=== PATIENT | male | born 1955 | race Caucasian/White ===

== ENCOUNTER → 2018-01-13 | Outpatient (CLI) | payer BC | END | disposition home or self-care (01) | LOC: US 09:57 | DX: K80.20 Calculus of gallbladder without cholecystitis without obstruction (principal); E83.19 Other disorders of iron metabolism | CPT/HCPCS: 76705 ==

== ENCOUNTER 2018-03-02 13:25 | Inpatient (IN) | payer OTHER, BC ==
[2018-03-02 14:03] LABS: ADD MAN DIFF? NO
[2018-03-02 14:09] LABS: BASO # 0.1 x10^3/uL (0.0-0.2); BASO % 1 % (0-3); EOS # 0.2 x10^3/uL (0.0-0.7); EOS % 2 % (0-3); HEMATOCRIT 34.3 % (39.0-53.0); HEMOGLOBIN 12.1 g/dL (13.0-17.5); LYMPH # 1.2 x10^3/uL (1.0-4.8); LYMPH % 12 % (24-48); MEAN CORPUSCULAR HEMOGLOBIN 30 pg (25-35); MEAN CORPUSCULAR HGB CONC 35 g/dL (31-37); MEAN CORPUSCULAR VOLUME 85 fL (79-100); MONO # 0.6 x10^3/uL (0.0-1.1); MONO % 6 % (0-9); NEUT # 8.1 x10^3uL (1.8-7.7); NEUT % 79 % (31-73); PLATELET COUNT 220 x10^3/uL (140-400); RED BLOOD COUNT 4.04 x10^6/uL (4.30-5.70); RED CELL DISTRIBUTION WIDTH 14.1 % (11.5-14.5); WHITE BLOOD COUNT 10.2 x10^3/uL (4.0-11.0)
[2018-03-02 14:17] LABS: ANION GAP 11 (6-14); BLOOD UREA NITROGEN 24 mg/dL (8-26); BUN/CREATININE RATIO 13 (6-20); CALCIUM 8.8 mg/dL (8.5-10.1); CARBON DIOXIDE 25 mmol/L (21-32); CHLORIDE 101 mmol/L (98-107); CREATININE 1.8 mg/dL (0.7-1.3); GFR 38.4; GLUCOSE 359 mg/dL (70-99); POTASSIUM 3.8 mmol/L (3.5-5.1); SODIUM 137 mmol/L (136-145)
[2018-03-02] MEDS: ASPIRIN CHEWABLE 81 MG TABLET. PO (14:22)
[2018-03-02] MEDS: ORPHENADRINE CITRATE 60 MG/2 ML VIAL. IM (14:22)
[2018-03-02 14:23] LABS: ALBUMIN 3.5 g/dL (3.4-5.0); ALBUMIN/GLOBULIN RATIO 0.9 (1.0-1.7); ALK PHOS 109 U/L (46-116); ALT (SGPT) 15 U/L (16-63); AST (SGOT) 16 U/L (15-37); LIPASE 135 U/L (73-393); MAGNESIUM 1.8 mg/dL (1.8-2.4); TOTAL BILIRUBIN 0.6 mg/dL (0.2-1.0); TOTAL PROTEIN 7.6 g/dL (6.4-8.2)
[2018-03-02 14:26] LABS: TROPONINI < 0.017 ng/mL (0.000-0.055)
[2018-03-02 14:30] LABS: PROTHROMBIN TIME PATIENT 12.7 SEC (11.7-14.0)
[2018-03-02 14:31] LABS: CKMB INDEX 0.9 % (0-4); CREATINE KINASE 109 U/L (39-308)
[2018-03-02 14:31] LABS: NT-PRO BNP 2959 pg/mL (0-124)
[2018-03-02] MEDS: hydrALAZINE 20 MG/ML VIAL. IVP ×3 (14:41→17:57)
[2018-03-02] MEDS ORDERED: fentaNYL PF VIAL 100 MCG/2 ML VIAL IV (15:45)
[2018-03-02] MEDS: fentaNYL PF VIAL 100 MCG/2 ML VIAL IV (16:09)
[2018-03-02] MEDS: INSULIN REGULAR 100 UNIT/ML 3ML VIAL. IV (16:13)
[2018-03-02 16:16] LABS: POC GLUCOSE 219 mg/dL (70-99)
[2018-03-02 17:11] LABS: POC GLUCOSE 85 mg/dL (70-99)
[2018-03-02 19:07] LABS: TROPONINI 0.018 ng/mL (0.000-0.055)
[2018-03-02 21:05] LABS: POC GLUCOSE 228 mg/dL (70-99)
[2018-03-02] MEDS: INSULIN LISPRO 300 UNITS/3 ML INSULN.PEN. SQ (21:30)
[2018-03-02] MEDS: CARVEDILOL 12.5 MG TABLET. PO (21:30)
[2018-03-02] MEDS ORDERED: HYDROcodone/APAP 5/325MG 1 TAB TABLET PO (21:30)
[2018-03-02] MEDS ORDERED: DEXTROSE 50% 25 GM / 50ML DISP.SYRIN. IV (21:30)
[2018-03-02] MEDS: ISOSORBIDE MONONITRATE 20 MG TABLET PO (21:30)
[2018-03-02] MEDS: ATORVASTATIN CALCIUM 40 MG TABLET. PO (21:40)
[2018-03-02 21:44] LABS: TROPONINI 0.038 ng/mL (0.000-0.055)
[2018-03-03] MEDS: cloNIDine HCL 0.2 MG TABLET PO
[2018-03-03] MEDS: LEVOTHYROXINE 125 MCG TABLET PO (06:22)
[2018-03-03] MEDS: INSULIN LISPRO 300 UNITS/3 ML INSULN.PEN. SQ ×2 (08:00→12:00)
[2018-03-03] MEDS: OMEGA-3 FATTY ACIDS/FISH OIL 1,000 MG CAPSULE. PO (08:31)
[2018-03-03] MEDS: ASPIRIN CHEWABLE 81 MG TABLET. PO (08:31)
[2018-03-03] MEDS: GLIMEPIRIDE 2 MG TABLET. PO (08:31)
[2018-03-03] MEDS: CARVEDILOL 12.5 MG TABLET. PO (08:32)
[2018-03-03] MEDS: LOSARTAN POTASSIUM 50 MG TABLET. PO (08:32)
[2018-03-03] MEDS: FUROSEMIDE 40 MG TABLET. PO (08:33)
[2018-03-03] MEDS: ISOSORBIDE MONONITRATE 20 MG TABLET PO (08:33)
[2018-03-03 08:36] LABS: POC GLUCOSE 115 mg/dL (70-99)
== END 2018-03-03 15:49 | disposition home or self-care (01) | DRG 305 ==
LOC: ER 13:25 → 2 SOUTH 15:29
DX: I16.0 Hypertensive urgency (principal); D64.9 Anemia, unspecified; E03.9 Hypothyroidism, unspecified; E11.65 Type 2 diabetes mellitus with hyperglycemia; E78.00 Pure hypercholesterolemia, unspecified; E78.5 Hyperlipidemia, unspecified; H54.62 Unqualified visual loss, left eye, normal vision right eye; I11.0 Hypertensive heart disease with heart failure; I25.10 Atherosclerotic heart disease of native coronary artery without angina pectoris; I50.9 Heart failure, unspecified; M54.9 Dorsalgia, unspecified; R07.9 Chest pain, unspecified; Z82.49 Family history of ischemic heart disease and other diseases of the circulatory system; Z87.891 Personal history of nicotine dependence; Z95.1 Presence of aortocoronary bypass graft; Z90.49 Acquired absence of other specified parts of digestive tract; Z89.422 Acquired absence of other left toe(s); Z79.899 Other long term (current) drug therapy; Z79.82 Long term (current) use of aspirin; Z79.4 Long term (current) use of insulin; Z89.421 Acquired absence of other right toe(s)
CPT/HCPCS: 36415; 71046; 80053; 82553; 82962; 83690; 83735; 83880; 84484; 85025; 85610; 93005; 96372; 96374; 96376; 99285; 99285-25; J0360; J1815; J2360; J3010

== ENCOUNTER → 2018-07-18 | Outpatient (CLI) | payer BC, OTHER ==
[2018-03-03 11:00] VITALS: BP 146/67
[~2018-07-18] MED LIST: AMLO10TA6 PO; AMOX1TAB61 PO; ASPI-630 PO; ATOR40TA59 PO; CARV25TA2 PO; DOCU-109 PO; DOXY100C2 PO; FERR160T4 PO; FURO40TA4 PO; GLIM4TAB2 PO; ISOS20TA2 PO; LEVO125T5 PO; LOSA100T7 PO; MULT-245 PO; OMEG1CAP28 PO
--- NOTE | 2018-07-18 15:51 | RAD ---
MRI Of The Abdomen Without Intravenous Contrast: History: Neoplasm of the left kidney. Comparison: CT abdomen pelvis May 03, 2014. Technique: MRI of the abdomen was performed without intravenous contrast using multiple sequences and planes. No intravenous contrast was administered secondary to order. Findings: Evaluation is limited secondary to lack of intravenous contrast. Visualized liver is without evidence of focal mass. Spleen is unremarkable as are bilateral adrenal glands. The pancreas demonstrates presence of numerous T2 hyperintense cystic-appearing lesions. The pancreatic lesions range in size from 3 mm to 1.4 cm (visualized in the uncinate process. Pancreatic duct does not appear dilated with maximum diameter of 2 mm. Common bile duct has maximum diameter 4 mm. Gallbladder is partially contracted, but unremarkable. Inferior pole of left kidney demonstrates thinning of the anterior aspect. Involving junction of the interpolar region of the left kidney and the inferior pole, there is a 1.5 cm cystic appearing lesion with increased T2 and intermediate T1 signal. This is not well visualized on the comparison CT, but comparison CT was performed without intravenous contrast. Inferior pole of the right kidney demonstrates 1.2 cm lesion with increased T2 and decreased T1 signal, favored to be cyst. Impression: 1. Limited evaluation secondary lack of intravenous contrast. 2. Inferior pole of the left kidney demonstrates 1.5 cm lesion with increased T2 and intermediate T1 signal. This does not appear to be atypical cyst, but might be mildly proteinaceous cyst; cystic neoplasm is not excluded, however. Attention on follow-up imaging. 3. Interpolar right kidney demonstrates cystic lesion measuring 1.2 cm, probably cyst as it is increased in T2 and decreased in T1. Attention on follow-up imaging. 4. Numerous cystic lesions are seen involving the pancreas. Possibilities are multiple pseudocysts (if any history of previous pancreatitis) versus cystic pancreatic neoplasms. Electronically signed by: Diego Martinez MD (07/18/2018 3:47 PM) [place] [id number]
== END | disposition home or self-care (01) ==
LOC: MRI 14:51
PROVIDERS: ATTEND Internal Medicine Nephrology
DX: D41.02 Neoplasm of uncertain behavior of left kidney (principal)
CPT/HCPCS: 74181

== ENCOUNTER → 2018-08-04 | Outpatient (CLI) | payer BC, OTHER ==
[2018-03-03 11:00] VITALS: BP 146/67
[~2018-08-04] MED LIST changes: +LOSA100T14 PO; -LOSA100T7 PO
--- NOTE | 2018-08-04 16:40 | RAD ---
CHEST PA LATERAL CLINICAL INDICATION: RIGHT SIDED DECREASE OF BREATH SOUNDS. HX OF PNEUMONIA, CHF COMPARISON: 03/02/2018 FINDINGS: CABG changes noted. Heart is normal in size. Right lateral subpleural scarring seen which is stable from previous exam. There is mild loss of right lung volume. No pneumothorax or pleural effusion. Visualized bony thorax is within normal limits. IMPRESSION: Right lateral subpleural midlung zone scarring. Stable exam from 03/02/2018. Electronically signed by: Vinayak Leslie DO (08/04/2018 4:37 PM) [facility]
== END | disposition home or self-care (01) ==
LOC: RAD 10:24
PROVIDERS: ATTEND Internal Medicine Hematology & Oncology
DX: J98.4 Other disorders of lung (principal); I11.0 Hypertensive heart disease with heart failure; I50.9 Heart failure, unspecified; Z87.01 Personal history of pneumonia (recurrent); Z87.891 Personal history of nicotine dependence
CPT/HCPCS: 71046

== ENCOUNTER 2019-10-01 23:11 | Emergency (ER) | payer BC, MEDICARE, OTHER ==
[~2019-10-01] VITALS: Ht 172.7 cm; Wt 90.7 kg
[~2019-10-01 23:11] MED LIST changes: -AMLO10TA6 PO; +AMLO10TA8 PO; -GLIM4TAB2 PO; +GLIM4TAB8 PO
--- NOTE | 2019-10-02 00:44 | RAD ---
PQRS Compliance Statement: One or more of the following individualized dose reduction techniques were utilized for this examination: 1. Automated exposure control 2. Adjustment of the mA and/or kV according to patient size 3. Use of iterative reconstruction technique CT HEAD WITHOUT CONTRAST History: Dizziness. Comparison: None. Procedure: Axial images are obtained of the head from the skull base through the vertex without IV contrast. Findings: The ventricles and sulci are normal for the patient's age. No mass-effect, midline shift, hemorrhage, extra-axial fluid collection, or obvious acute infarction is identified. Basilar cisterns are patent. Bone windows demonstrate no acute calvarial abnormality. Mucosal thickening bilateral ethmoid and right maxillary sinuses. No air-fluid level is seen. Maxillary sinuses incompletely imaged. 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 Mastoid air cells are well aerated. IMPRESSION: No acute intracranial abnormality. Electronically signed by: Patric Pond MD (10/02/2019 12:42 AM) [id number]
[2019-10-02 01:00] LABS: BASO # 0.1 x10^3/uL (0.0-0.2); BASO % 1 % (0-3); EOS # 0.5 x10^3/uL (0.0-0.7); EOS % 4 % (0-3); HEMATOCRIT 28.9 % (39.0-53.0); HEMOGLOBIN 9.9 g/dL (13.0-17.5); LYMPH # 1.3 x10^3/uL (1.0-4.8); LYMPH % 10 % (24-48); MEAN CORPUSCULAR HEMOGLOBIN 29 pg (25-35); MEAN CORPUSCULAR HGB CONC 34 g/dL (31-37); MEAN CORPUSCULAR VOLUME 84 fL (79-100); MONO # 0.9 x10^3/uL (0.0-1.1); MONO % 8 % (0-9); NEUT # 9.7 x10^3/uL (1.8-7.7); NEUT % 78 % (31-73); PLATELET COUNT 204 x10^3/uL (140-400); RED BLOOD COUNT 3.44 x10^6/uL (4.30-5.70); RED CELL DISTRIBUTION WIDTH 14.4 % (11.5-14.5); WHITE BLOOD COUNT 12.5 x10^3/uL (4.0-11.0)
[2019-10-02 01:08] LABS: CALCIUM 8.8 mg/dL (8.5-10.1); CREATININE 1.9 mg/dL (0.7-1.3); GFR 35.9; POTASSIUM 3.9 mmol/L (3.5-5.1)
[2019-10-02 01:15] LABS: ALBUMIN 3.7 g/dL (3.4-5.0); ALBUMIN/GLOBULIN RATIO 1.1 (1.0-1.7); TOTAL BILIRUBIN 0.5 mg/dL (0.2-1.0)
--- NOTE | 2019-10-02 01:38 | PHYS DOC ---
Past Medical History Past Medical History: Anemia, CHF, Diabetes-Type II, High Cholesterol, Heart Disease, Hypertension, Hypothyroid Additional Past Medical Histor: thyroid disease Past Surgical History: Coronary Bypass Surgery, Tonsillectomy Additional Past Surgical Histo: Quadruple bypass, R)great&2nd, L) small toe amputations Smoking Status: Former Smoker Alcohol Use: None Drug Use: None Adult General Chief Complaint Chief Complaint: DIZZY/LIGHT HEADED HPI HPI Patient is a 64 year old with history of hypertension, dyslipidemia, CAD, CABG, congestive heart failure presents with syncopal episode after falling. Patient had a coughing well prior to walking up steps and then felt dizzy with need to sit down. Patient then lost postural tone and was briefly unresponsive for 20-30 seconds. Then patient began to mumble but was incoherent for 3-4 minutes, before becoming fully alert. There was no seizure activity witnessed. Patient denies headache, palpitations, chest pain shortness of breath prior to episode. No prior history of syncope, or cardiac arrhythmias. No recent illnesses, new medications. No other acute symptoms or complaints.[] Review of Systems Review of Systems Review symptoms as per history of present illness. All other review symptoms are negative. All other systems were reviewed and found to be within normal limits, except as documented in this note. Allergies Allergies Allergies Coded Allergies Type Severity Reaction Last Updated Verified No Known Drug Allergies 05/03/14 No Physical Exam Physical Exam Constitutional: Well developed, well nourished, no acute distress, non-toxic appearance. [] HENT: Normocephalic, atraumatic, bilateral external ears normal, oropharynx moist, no oral exudates, nose normal. [] Eyes: Left eye, blind, right pupil round and reactive.. [] Neck: Normal range of motion, no tenderness, supple, no stridor. [] Cardiovascular:Heart rate regular rhythm, no murmur [] Lungs & Thorax: Bilateral breath sounds clear to auscultation [] Abdomen: Bowel sounds normal, soft. [] Skin: Warm, dry, no erythema, no rash. [] Back: No tenderness. [] Extremities: No tenderness, no edema. [] Neurologic: Alert and oriented X 3, no extremity weakness or loss of sensation.. [] Psychologic: Affect normal, judgement normal, mood normal. [] Current Patient Data Vital Signs Vital Signs Date Time Temp Pulse Resp B/P (MAP) Pulse Ox O2 Delivery O2 Flow Rate FiO2 10/01/19 23:30 98.0 70 18 148/69 (95) 94 Room Air 98.0 Lab Values Laboratory Tests Test 10/02/19 00:40 10/02/19 02:10 White Blood Count 12.5 x10^3/uL (4.0-11.0) H Red Blood Count 3.44 x10^6/uL (4.30-5.70) L Hemoglobin 9.9 g/dL (13.0-17.5) L Hematocrit 28.9 % (39.0-53.0) L Mean Corpuscular Volume 84 fL (79-100) Mean Corpuscular Hemoglobin 29 pg (25-35) Mean Corpuscular Hemoglobin Concent 34 g/dL (31-37) Red Cell Distribution Width 14.4 % (11.5-14.5) Platelet Count 204 x10^3/uL (140-400) Neutrophils (%) (Auto) 78 % (31-73) H Lymphocytes (%) (Auto) 10 % (24-48) L Monocytes (%) (Auto) 8 % (0-9) Eosinophils (%) (Auto) 4 % (0-3) H Basophils (%) (Auto) 1 % (0-3) Neutrophils # (Auto) 9.7 x10^3/uL (1.8-7.7) H Lymphocytes # (Auto) 1.3 x10^3/uL (1.0-4.8) Monocytes # (Auto) 0.9 x10^3/uL (0.0-1.1) Eosinophils # (Auto) 0.5 x10^3/uL (0.0-0.7) Basophils # (Auto) 0.1 x10^3/uL (0.0-0.2) Sodium Level 138 mmol/L (136-145) Potassium Level 3.9 mmol/L (3.5-5.1) Chloride Level 102 mmol/L (98-107) Carbon Dioxide Level 25 mmol/L (21-32) Anion Gap 11 (6-14) Blood Urea Nitrogen 27 mg/dL (8-26) H Creatinine 1.9 mg/dL (0.7-1.3) H Estimated GFR (Cockcroft-Gault) 35.9 BUN/Creatinine Ratio 14 (6-20) Glucose Level 207 mg/dL (70-99) H Calcium Level 8.8 mg/dL (8.5-10.1) Total Bilirubin 0.5 mg/dL (0.2-1.0) Aspartate Amino Transferase (AST) 15 U/L (15-37) Alanine Aminotransferase (ALT) 25 U/L (16-63) Alkaline Phosphatase 127 U/L (46-116) H Troponin I Quantitative < 0.017 ng/mL (0.000-0.055) Total Protein 7.0 g/dL (6.4-8.2) Albumin 3.7 g/dL (3.4-5.0) Albumin/Globulin Ratio 1.1 (1.0-1.7) Urine Collection Type Unknown Urine Color Yellow Urine Clarity Clear Urine pH 6.5 Urine Specific [place] 1.010 Urine Protein >=300 mg/dL (NEG-TRACE) Urine Glucose (UA) 250 mg/dL (NEG) Urine Ketones (Stick) Negative mg/dL (NEG) Urine Blood Negative (NEG) Urine Nitrite Negative (NEG) Urine Bilirubin Negative (NEG) Urine Urobilinogen Dipstick 1.0 mg/dL (0.2 mg/dL) Urine Leukocyte Esterase Negative (NEG) Urine RBC Rare /HPF (0-2) Urine WBC Rare /HPF (0-4) Urine Squamous Epithelial Cells Occ /LPF Urine Bacteria 0 /HPF (0-FEW) Urine Mucus Slight /LPF Laboratory Tests 10/02/19 00:40 Laboratory Tests 10/02/19 00:40 EKG EKG [EKG: reviewed] Radiology/Procedures Radiology/Procedures [CT head: No acute findings per radiology report CXR: CM with PVC] Course & Med Decision Making Course & Med Decision Making Pertinent Labs and Imaging studies reviewed. (See chart for details) [CT, lab and EKG reviewed. No arrhythmias on monitor. Patient states he did not take a pressure medication prior to ED arrival. Hospital admission offered for further evaluation. Patient declines and prefers to follow-up with his health advocate as outpatient. Return precautions reviewed. Patient verbalizes understanding and agreement with discharge instructions prior to departure.] Dragon Disclaimer Dragon Disclaimer This electronic medical record was generated, in whole or in part, using a voice recognition dictation system. Departure Departure Impression: Primary Impression: Syncope and collapse Disposition: 01 HOME, SELF-CARE Condition: GUARDED Referrals: IRMA CALLE APRN (PCP) Patient Instructions: Syncope, [id number] Additional Instructions: You were elevated emergency department for fainting episode. CT lab and imaging EKG were performed. The exact cause has not been determined but may be related to coughing episode prior to passing out. Please continue home medications and follow-up with your PCP and health advocate the next 3-5 days for further evaluation. Return to the ED if new or concerning symptoms. CHRISTOPHE HAYWARD DO Oct 02, 2019 01:38
--- NOTE | 2019-10-02 01:59 | RAD ---
CHEST AP ONLY Clinical Indication: Chest pain Comparison: Two-view chest August 04, 2018. Findings: Changes of CABG. Stable cardiomegaly. Parenchymal scarring in the right lung base and right costophrenic angle pleural thickening are stable. No acute airspace disease. There is no pneumothorax. No acute bone abnormality. IMPRESSION: No acute cardiopulmonary process. Electronically signed by: Patric Pond MD (10/02/2019 1:56 AM) [id number]
[2019-10-02 02:25] LABS: BILIRUBIN,URINE NEGATIVE (NEG); CLARITY,URINE CLEAR; COLOR,URINE YELLOW; NITRITE,URINE NEGATIVE (NEG); PH,URINE 6.5; PROTEIN,URINE >=300 mg/dL (NEG-TRACE)
[2019-10-02 02:33] LABS: BACTERIA,URINE 0 /HPF (0-FEW); RBC,URINE RARE /HPF (0-2); SQUAMOUS EPITHELIAL CELL,UR OCC /LPF; WBC,URINE RARE /HPF (0-4)
[2019-10-02 03:27] VITALS: BP 204/90
--- NOTE | 2019-10-02 04:40 | EKG ---
[facility] [address] [place] [address] Test Date: 2019-10-02 Test Time: 00:16:36 Pat Name: YVROSE CEJA Department: Room: Gender: M [place] Former Machine Operator: : 1955 Requested By: CHRISTOPHE HAYWARD Order Number: [id number] Reading MD: Measurements Intervals Sherman Rate: 71 P: 47 MO: 240 QRS: -12 QRSD: 96 T: -176 QT: 430 QTc: 467 Interpretive Statements SINUS RHYTHM PROLONGED MO INTERVAL LEFTWARD AXIS LVH WITH REPOLARIZATION ABNORMALITY ABNORMAL ECG RI6.01 No previous ECG available for comparison
== END 2019-10-02 03:28 | disposition home or self-care (01) ==
LOC: ER 23:11
DX: R55 Syncope and collapse (principal); E78.00 Pure hypercholesterolemia, unspecified; I11.0 Hypertensive heart disease with heart failure; I50.9 Heart failure, unspecified; E11.9 Type 2 diabetes mellitus without complications; E03.9 Hypothyroidism, unspecified; Z95.1 Presence of aortocoronary bypass graft; Z87.891 Personal history of nicotine dependence
CPT/HCPCS: 36415; 70450; 71045; 80053; 81001; 84484; 85025; 93005; 99285-25

== ENCOUNTER 2020-08-01 11:32 | Observation (INO) | payer MEDICARE ==
[~2020-08-01] VITALS: Ht 172.7 cm; Wt 91.5 kg
[~2020-08-01 11:32] MED LIST changes: +AMLO-186 PO; +AMLO-187 PO; -AMLO10TA8 PO
[2020-08-01 12:03] LABS: BASO # 0.1 x10^3/uL (0.0-0.2); BASO % 1 % (0-3); EOS # 0.4 x10^3/uL (0.0-0.7); EOS % 4 % (0-3); HEMOGLOBIN 7.3 g/dL (13.0-17.5); LYMPH # 1.1 x10^3/uL (1.0-4.8); LYMPH % 12 % (24-48); MEAN CORPUSCULAR HEMOGLOBIN 29 pg (25-35); MEAN CORPUSCULAR HGB CONC 35 g/dL (31-37); MEAN CORPUSCULAR VOLUME 83 fL (79-100); MONO # 0.8 x10^3/uL (0.0-1.1); MONO % 8 % (0-9); NEUT # 6.9 x10^3/uL (1.8-7.7); NEUT % 75 % (31-73); PLATELET COUNT 235 x10^3/uL (140-400); RED BLOOD COUNT 2.53 x10^6/uL (4.30-5.70); RED CELL DISTRIBUTION WIDTH 14.1 % (11.5-14.5); WHITE BLOOD COUNT 9.3 x10^3/uL (4.0-11.0)
[2020-08-01 12:13] LABS: CALCIUM 8.9 mg/dL (8.5-10.1); CREATININE 1.6 mg/dL (0.7-1.3); GFR 43.6; POTASSIUM 4.3 mmol/L (3.5-5.1)
[2020-08-01 12:18] LABS: ALBUMIN 3.2 g/dL (3.4-5.0); TOTAL BILIRUBIN 0.7 mg/dL (0.2-1.0); TOTAL PROTEIN 6.5 g/dL (6.4-8.2)
--- NOTE | 2020-08-01 12:37 | PHYS DOC ---
Past Medical History Past Medical History: Anemia, CHF, CVA, Diabetes-Type II, High Cholesterol, Heart Disease, Hypertension, Hypothyroid Additional Past Medical Histor: thyroid disease Past Surgical History: Coronary Bypass Surgery, Tonsillectomy Additional Past Surgical Histo: Quadruple bypass, R)great&2nd, L) small toe amputations Smoking Status: Former Smoker Alcohol Use: None Drug Use: None General Adult EDM: Chief Complaint: POST-OP PROBLEM HPI: HPI: This is a pleasant 65-year-old male presenting the emergency department today with neck swelling after right carotid endarterectomy. The surgery was on Tuesday. He was recovering at [facility] went over the past 24 hours he has had worsening swelling of the area. Over the past 8 hours he has noticed difficulty swallowing. He reports normal breathing without any difficulty. He denies any fevers. He denies any significant amount of pain in the area of the when he swallows. Location right neck. Duration constant. No alleviating factors Review of systems negative for chest pain shortness of breath vomiting abdominal pain headache fevers or chills. All other review of systems negative ED course: 65-year-old male presenting with neck swelling after her right carotid endarterectomy. On arrival the patient's neck is swollen however he is breathing comfortably without any difficulty. I put an ultrasound overlying the wound however was unable to synthesize any meaningful information from the ultrasound images. I called vascular surgery who came to evaluate the patient. They recommend that we admit the patient to the hospitalist team for overnight observation. The patient does not have any erythema over the wound it is not warm to touch. At this point it does not seem to be caused by infection. They asked that we hold the patient's Eliquis for now. We will speak with the hospitalist to admit the patient for further evaluation and monitoring. While in the emergency department the patient has had no changes in the amount of swelling or difficulty breathing. Heart Score: Risk Factors: Risk Factors: DM, Current or recent (<one month) smoker, HTN, HLP, family history of CAD, obesity. Risk Scores: Score 0 - 3: 2.5% MACE over next 6 weeks - Discharge Home Score 4 - 6: 20.3% MACE over next 6 weeks - Admit for Clinical Observation Score 7 - 10: 72.7% MACE over next 6 weeks - Early Invasive Strategies Allergies: Allergies: Allergies Coded Allergies Type Severity Reaction Last Updated Verified No Known Drug Allergies 05/03/14 No Physical Exam: PE: Constitutional: Well developed, well nourished, no acute distress, non-toxic appearance. [] HENT: Normocephalic, atraumatic, bilateral external ears normal, oropharynx moist, no oral exudates, nose normal. [] Eyes: PERRLA, EOMI, conjunctiva normal, no discharge. [] Neck: Normal range of motion, patient has a right endarterectomy surgical wound which is healing appropriately. There is no overlying erythema. Not warm to touch. Trachea is midline. No difficulty swallowing. No difficulty breathing. Cardiovascular:Heart rate regular rhythm, no murmur [] Lungs & Thorax: Bilateral breath sounds clear to auscultation [] Abdomen: Bowel sounds normal, soft, no tenderness, no masses, no pulsatile masses. [] Skin: Warm, dry, no erythema, no rash. [] Back: No tenderness, no CVA tenderness. [] Extremities: No tenderness, no cyanosis, no clubbing, ROM intact, no edema. [] Neurologic: Alert and oriented X 3, normal motor function, normal sensory function, no focal deficits noted. [] Psychologic: Affect normal, judgement normal, mood normal. [] Current Patient Data: Labs: Laboratory Tests Test 08/01/20 11:39 White Blood Count 9.3 x10^3/uL (4.0-11.0) Red Blood Count 2.53 x10^6/uL (4.30-5.70) L Hemoglobin 7.3 g/dL (13.0-17.5) L Hematocrit 21.0 % (39.0-53.0) *L Mean Corpuscular Volume 83 fL (79-100) Mean Corpuscular Hemoglobin 29 pg (25-35) Mean Corpuscular Hemoglobin Concent 35 g/dL (31-37) Red Cell Distribution Width 14.1 % (11.5-14.5) Platelet Count 235 x10^3/uL (140-400) Neutrophils (%) (Auto) 75 % (31-73) H Lymphocytes (%) (Auto) 12 % (24-48) L Monocytes (%) (Auto) 8 % (0-9) Eosinophils (%) (Auto) 4 % (0-3) H Basophils (%) (Auto) 1 % (0-3) Neutrophils # (Auto) 6.9 x10^3/uL (1.8-7.7) Lymphocytes # (Auto) 1.1 x10^3/uL (1.0-4.8) Monocytes # (Auto) 0.8 x10^3/uL (0.0-1.1) Eosinophils # (Auto) 0.4 x10^3/uL (0.0-0.7) Basophils # (Auto) 0.1 x10^3/uL (0.0-0.2) Prothrombin Time 17.0 SEC (11.7-14.0) H Prothrombin Time INR 1.4 (0.8-1.1) H Activated Partial Thromboplast Time 38 SEC (24-38) Sodium Level 131 mmol/L (136-145) L Potassium Level 4.3 mmol/L (3.5-5.1) Chloride Level 99 mmol/L (98-107) Carbon Dioxide Level 21 mmol/L (21-32) Anion Gap 11 (6-14) Blood Urea Nitrogen 28 mg/dL (8-26) H Creatinine 1.6 mg/dL (0.7-1.3) H Estimated GFR (Cockcroft-Gault) 43.6 BUN/Creatinine Ratio 18 (6-20) Glucose Level 266 mg/dL (70-99) H Calcium Level 8.9 mg/dL (8.5-10.1) Total Bilirubin 0.7 mg/dL (0.2-1.0) Aspartate Amino Transferase (AST) 20 U/L (15-37) Alanine Aminotransferase (ALT) 19 U/L (16-63) Alkaline Phosphatase 123 U/L (46-116) H Troponin I Quantitative < 0.017 ng/mL (0.000-0.055) Total Protein 6.5 g/dL (6.4-8.2) Albumin 3.2 g/dL (3.4-5.0) L Albumin/Globulin Ratio 1.0 (1.0-1.7) Laboratory Tests 08/01/20 11:39 Laboratory Tests 08/01/20 11:39 Vital Signs: Vital Signs Date Time Temp Pulse Resp B/P (MAP) Pulse Ox O2 Delivery O2 Flow Rate FiO2 08/01/20 11:32 98.4 71 16 151/69 (96) 96 Room Air 98.4 EKG: EKG: [] Radiology/Procedures: Radiology/Procedures: [] Course & Med Decision Making: Course & Med Decision Making Pertinent Labs and Imaging studies reviewed. (See chart for details) [] Dragon Disclaimer: Dragon Disclaimer: This electronic medical record was generated, in whole or in part, using a voice recognition dictation system. Departure Departure Impression: Primary Impression: Neck swelling Additional Impression: History of right-sided carotid endarterectomy Disposition: 01 DC HOME SELF CARE/HOMELESS Admitting Physician: HIMS Condition: STABLE Referrals: IRMA CALLE APRN (PCP) AQUILES PEREZ MD Aug 01, 2020 12:37
--- NOTE | 2020-08-01 12:45 | PDOC1 ---
History and Physical Date of Admission Date of Admission DATE: 08/01/20 TIME: 12:45 Identification/Chief Complaint Chief Complaint Neck swelling Source Source: Chart review, Patient History of Present Illness History of Present Illness Mr Kuo is a 65 yo M w/ PMHx CAD s/p CABG, PVD s/p toe amputations, HTN, hypothyroidism, HLD, DM2, dCHF, and recent right CVA and right CEA who is presenting from acute rehab to the emergency department 08/01/2020 with neck swelling after right carotid endarterectomy. The surgery was on 07/28/2020. He was recovering at [facility] went over the past day he has had worsening swelling of the area. Over the past 8 hours prior to ED visit he has noticed difficulty swallowing. He reports normal breathing without any difficulty. He denies any fevers. He denies any significant amount of pain in the area of the when he swallows. Labs with WBC 9.3, Hb 7.3, Platelets 235, INR 1.4, Na 131, K 4.3, BUN 28, Cr 1.6, glucose 266, Alb 3.2 Bedside US showed no vascular occlusions Admitted for further care Past Medical History Cardiovascular: CAD, CHF, HTN, [place], Hyperlipidemia, Other Pulmonary: Bronchitis CENTRAL NERVOUS SYSTEM: Periperal neuropathy, Other Renal/: Chronic renal insuff Endocrine: Diabetes, Hypothyroidism Past Surgical History Past Surgical History: CABG, Tonsillectomy, Other Family History Family History: Coronary Artery Disease, High Cholestrol, Hypertension Social History Smoke: Quit ALCOHOL: none Drugs: None Current Problem List Problem List Problems Medical Problems: (1) Neck swelling Status: Acute Current Medications Current Medications Active Scripts Active Amlodipine Besylate 5 Mg Tablet 2.5 Mg PO DAILY 30 Days Reported Isosorbide Mononitrate 20 Mg Tablet 50 Mg PO BID Fish Oil 1,200 Mg Softgel ([place]-3 Fatty Acids/Fish Oil) 1 Each Capsule 1 Each PO BID Multi Vitamin Daily (Multivitamin) 1 Each Tablet 1 Each PO Aspirin 81 Mg Tab.chew 1 Tab PO DAILY Losartan Potassium 100 Mg Tablet 1 Tab PO DAILY Furosemide 40 Mg Tablet 1 Tab PO DAILY Atorvastatin Calcium 40 Mg Tablet 1 Tab PO DAILY Carvedilol 25 Mg Tablet 1 Tab PO BID Levothyroxine Sodium 125 Mcg Tablet 1 Tab PO DAILY Glimepiride 4 Mg Tablet 1 Tab PO DAILY Allergies Allergies: Coded Allergies: No Known Drug Allergies (Unverified , 05/03/14) ROS General: YES: Fatigue, Malaise; No: Chills, Night Sweats, Appetite, Other PSYCHOLOGICAL ROS: No: Anxiety, Behavioral Disorder, Concentration difficultie, Decreased libido, Depression, Disorientation, Hallucinations, Hostility, Irritablity, Memory difficulties, Mood Swings, Obsessive thoughts, Physical abuse, Sexual abuse, Sleep disturbances, Suicidal ideation, Other Eyes: No Blurry vision, No Decreased vision, No Double vision, No Dry eyes, No Excessive tearing, No Eye Pain, No Itchy Eyes, No Loss of vision, No Photophobia, No Scotomata, No Uses contacts, No Uses glasses, No Other HEENT: No: Heacaches, Visual Changes, Hearing change, Nasal congestion, Nasal discharge, Oral lesions, Sinus pain, Sore Throat, Epistaxis, Sneezing, Snoring, Tinnitus, Vertigo, Vocal changes, Other ALLERGY AND IMMUNOLOGY: No: Hives, Insect Bite Sensitivity, Itchy/Watery Eyes, Nasal Congestion, Post Nasal Drip, Seasonal Allergies, Other Hematological and Lymphatic: No: Bleeding Problems, Blood Clots, Blood Transfusions, Brusing, Night Sweats, Pallor, Swollen Lymph Nodes, Other ENDOCRINE: No: Breast Changes, Galactorrhea, Hair Pattern Changes, Hot Flashes, Malaise/lethargy, Mood Swings, Palpitations, Polydipsia/polyuria, Skin Changes, Temperature Intolerance, Unexpected Weight Changes, Other Breast: No New/Changing Breast Lumps, No Nipple changes, No Nipple discharge, No Other Respiratory: No: Cough, Hemoptysis, Orthopnea, Pleuritic Pain, Shortness of breath, SOB with excertion, Sputum Changes, Stridor, Tachypnea, Wheezing, Other Cardiovascular: No Chest Pain, No Palpitations, No Orthopnea, No Paroxysmal Noc. Dyspnea, No Edema, No Lt Headedness, No Other Gastrointestinal: No Nausea, No Vomiting, No Abdominal Pain, No Diarrhea, No Constipation, No Melena, No Hematochezia, No Other Genitourinary: No Dysuria, No Frequency, No Incontinence, No Hematuria, No Retention, No Discharge, No Urgency, No Pain, No Flank Pain, No Other, No , No , No , No , No , No , No Musculoskeletal: No Gait Disturbance, No Joint Pain, No Joint Stiffness, No Joint Swelling, No Muscle Pain, No Muscular Weakness, No Pain In:, No Swelling In:, No Other Neurological: No Behavorial Changes, No Bowel/Bladder ControlChng, No Confusion, No Dizziness, No Gait Disturbance, No Headaches, No Impaired Coord/balance, No Memory Loss, No Numbness/Tingling, No Seizures, No Speech Problems, No Tremors, No Visual Changes, No Weakness, No Other Skin: No Dry Skin, No Eczema, No Hair Changes, No Lumps, No Mole Changes, No Mottling, No Nail Changes, No Pruritus, No Rash, No Skin Lesion Changes, No Other, No Acne Physical Exam General: Alert, Oriented X3, Cooperative, No acute distress HEENT: Atraumatic, PERRLA, EOMI, Mucous membr. moist/pink, Other (right neck swelling) Lungs: Clear to auscultation, Normal air movement Heart: S1S2, RRR, no thrills, no rubs, no gallops, no murmurs Abdomen: Normal bowel sounds, Soft, No tenderness, No hepatosplenomegaly, No masses Rectal Exam: not examined Extremities: No clubbing, No cyanosis, No edema, Normal pulses, No tenderness/swelling Skin: No rashes, No breakdown, No significant lesion Neuro: Normal gait, Normal speech, Strength at 5/5 X4 ext, Normal tone, Sensation intact, Cranial nerves 3-12 NL, Reflexes 2+ Psych/Mental Status: Mental status NL, Mood NL Vitals Vitals Vital Signs Date Time Temp Pulse Resp B/P (MAP) Pulse Ox O2 Delivery O2 Flow Rate FiO2 08/01/20 11:32 98.4 71 16 151/69 (96) 96 Room Air 98.4 Labs Labs Laboratory Tests Test 08/01/20 11:39 White Blood Count 9.3 x10^3/uL (4.0-11.0) Red Blood Count 2.53 x10^6/uL (4.30-5.70) Hemoglobin 7.3 g/dL (13.0-17.5) Hematocrit 21.0 % (39.0-53.0) Mean Corpuscular Volume 83 fL (79-100) Mean Corpuscular Hemoglobin 29 pg (25-35) Mean Corpuscular Hemoglobin Concent 35 g/dL (31-37) Red Cell Distribution Width 14.1 % (11.5-14.5) Platelet Count 235 x10^3/uL (140-400) Neutrophils (%) (Auto) 75 % (31-73) Lymphocytes (%) (Auto) 12 % (24-48) Monocytes (%) (Auto) 8 % (0-9) Eosinophils (%) (Auto) 4 % (0-3) Basophils (%) (Auto) 1 % (0-3) Neutrophils # (Auto) 6.9 x10^3/uL (1.8-7.7) Lymphocytes # (Auto) 1.1 x10^3/uL (1.0-4.8) Monocytes # (Auto) 0.8 x10^3/uL (0.0-1.1) Eosinophils # (Auto) 0.4 x10^3/uL (0.0-0.7) Basophils # (Auto) 0.1 x10^3/uL (0.0-0.2) Prothrombin Time 17.0 SEC (11.7-14.0) Prothromb Time International Ratio 1.4 (0.8-1.1) Activated Partial Thromboplast Time 38 SEC (24-38) Sodium Level 131 mmol/L (136-145) Potassium Level 4.3 mmol/L (3.5-5.1) Chloride Level 99 mmol/L (98-107) Carbon Dioxide Level 21 mmol/L (21-32) Anion Gap 11 (6-14) Blood Urea Nitrogen 28 mg/dL (8-26) Creatinine 1.6 mg/dL (0.7-1.3) Estimated GFR (Cockcroft-Gault) 43.6 BUN/Creatinine Ratio 18 (6-20) Glucose Level 266 mg/dL (70-99) Calcium Level 8.9 mg/dL (8.5-10.1) Total Bilirubin 0.7 mg/dL (0.2-1.0) Aspartate Amino Transf (AST/SGOT) 20 U/L (15-37) Alanine Aminotransferase (ALT/SGPT) 19 U/L (16-63) Alkaline Phosphatase 123 U/L (46-116) Troponin I Quantitative < 0.017 ng/mL (0.000-0.055) Total Protein 6.5 g/dL (6.4-8.2) Albumin 3.2 g/dL (3.4-5.0) Albumin/Globulin Ratio 1.0 (1.0-1.7) Laboratory Tests Test 08/01/20 11:39 White Blood Count 9.3 x10^3/uL (4.0-11.0) Red Blood Count 2.53 x10^6/uL (4.30-5.70) Hemoglobin 7.3 g/dL (13.0-17.5) Hematocrit 21.0 % (39.0-53.0) Mean Corpuscular Volume 83 fL (79-100) Mean Corpuscular Hemoglobin 29 pg (25-35) Mean Corpuscular Hemoglobin Concent 35 g/dL (31-37) Red Cell Distribution Width 14.1 % (11.5-14.5) Platelet Count 235 x10^3/uL (140-400) Neutrophils (%) (Auto) 75 % (31-73) Lymphocytes (%) (Auto) 12 % (24-48) Monocytes (%) (Auto) 8 % (0-9) Eosinophils (%) (Auto) 4 % (0-3) Basophils (%) (Auto) 1 % (0-3) Neutrophils # (Auto) 6.9 x10^3/uL (1.8-7.7) Lymphocytes # (Auto) 1.1 x10^3/uL (1.0-4.8) Monocytes # (Auto) 0.8 x10^3/uL (0.0-1.1) Eosinophils # (Auto) 0.4 x10^3/uL (0.0-0.7) Basophils # (Auto) 0.1 x10^3/uL (0.0-0.2) Prothrombin Time 17.0 SEC (11.7-14.0) Prothromb Time International Ratio 1.4 (0.8-1.1) Activated Partial Thromboplast Time 38 SEC (24-38) Sodium Level 131 mmol/L (136-145) Potassium Level 4.3 mmol/L (3.5-5.1) Chloride Level 99 mmol/L (98-107) Carbon Dioxide Level 21 mmol/L (21-32) Anion Gap 11 (6-14) Blood Urea Nitrogen 28 mg/dL (8-26) Creatinine 1.6 mg/dL (0.7-1.3) Estimated GFR (Cockcroft-Gault) 43.6 BUN/Creatinine Ratio 18 (6-20) Glucose Level 266 mg/dL (70-99) Calcium Level 8.9 mg/dL (8.5-10.1) Total Bilirubin 0.7 mg/dL (0.2-1.0) Aspartate Amino Transf (AST/SGOT) 20 U/L (15-37) Alanine Aminotransferase (ALT/SGPT) 19 U/L (16-63) Alkaline Phosphatase 123 U/L (46-116) Troponin I Quantitative < 0.017 ng/mL (0.000-0.055) Total Protein 6.5 g/dL (6.4-8.2) Albumin 3.2 g/dL (3.4-5.0) Albumin/Globulin Ratio 1.0 (1.0-1.7) VTE Prophylaxis Ordered VTE Prophylaxis Devices: Yes VTE Pharmacological Prophylaxi: Yes Assessment/Plan Assessment/Plan A/P: Dysphagia - possible 2/2 CVA vs neck swelling, will monitor inpatient, 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 Hold eliquis and ASA. Vascular surgery consulted Acute anemia - likely from acute blood loss, will type and screen, will transfuse if Hb < 7 CAD s/p CABG - hold ASA for bleeding, cont cardiac meds Hyponatremia - acutely likely from hypovolemia, will encourage PO PVD s/p toe amputations and CEA HTN - cont meds Hypothyroidism - cont levothyroxine HLD - cont statin DM2 - sliding scale insulin dCHF - not in acute CHF Carotid vascular disease - s/p Right CEA Recent right CVA - posterior aspect of the right MCA territory - temporal operculum and a possible acute infarct in the right parietal lobe. CKD - Stable FEN - Cardiac diet PPX - SCDs FULL CODE Dispo - inpatient Justifications for Admission Other Justification ANNELISE NGUYEN MD Aug 01, 2020 12:45
--- NOTE | 2020-08-01 12:51 | PDOC ---
Provider Note Date of Service: DATE: 08/01/20 TIME: 12:42 Provider Note Provider Note Vascular S: Patient seen in the ER with Dr. Collado. Patient is status post right carotid endarterectomy from 07/28/2020, he reports the ER with neck swelling that started approximately 2 days ago, initially was just the swelling and then he had some difficulty swallowing. He denies any difficulty breathing. He does report he has had a cough over the past couple days, this is since resolved. He was discharged from the hospital 07/30. On the day of discharge she was started on Eliquis for atrial fibrillation. Denies any neurologic symptoms. O: Vital signs stable, afebrile Awake, alert, no apparent distress Respirations non-labored Right side neck incision, clean, dry, intact with Steri-Strips intact. There is moderate ecchymosis surrounding this incision with some mild-moderate swelling. Neck is soft. Face symmetrical, tongue midline, impregnator operator strength equal bilaterally, arm strength equal bilaterally. Foot range of motion intact bilaterally. A/P: s/p Right CEA 07/[address] Collado in ER. Has mild post operative hematoma, likely from combination of cough pt reports, anticoagulation. No surgical intervention indicated at this point, but would like to observe in hospital. Ice pack to neck and hold anticoagulation. Discussed with patient who agrees. Justicifation of Admission Dx: Justifications for Admission: Justification of Admission Dx: N/A MOISÉS ESPINOZA Aug 01, 2020 12:51
[2020-08-01] MEDS ORDERED: ONDANSETRON PF 4 MG/2 ML VIAL. IV PRN (14:30)
[2020-08-01] MEDS ORDERED: ACETAMINOPHEN 325 MG TABLET. PO PRN (14:30)
[2020-08-01] MEDS ORDERED: DOCUSATE SODIUM 100 MG CAPSULE. PO PRN (14:30)
[2020-08-01 16:58] VITALS: BP 132/67
[2020-08-01 19:10] VITALS: BP 147/66
[2020-08-01] MEDS: INSULIN LISPRO 300 UNITS/3 ML VIAL. SQ SCH (21:00)
[2020-08-01] MEDS ORDERED: DEXTROSE 50% 25 GM / 50ML DISP.SYRIN. IV PRN (21:00)
[2020-08-01] MEDS ORDERED: ISOSORBIDE MONONITRATE 20 MG TABLET PO SCH (21:00)
[2020-08-01] MEDS: ISOSORBIDE MONONITRATE ER 30 MG TAB.ER.24H PO SCH (21:22)
[2020-08-01] MEDS: guaiFENesin ORAL 200 MG/10 ML LIQUID. PO PRN (22:43)
[2020-08-01 22:52] VITALS: BP 128/55
[2020-08-02] MEDS: guaiFENesin ORAL 200 MG/10 ML LIQUID. PO PRN ×2 (02:47→09:40)
[2020-08-02 03:25] VITALS: BP 148/78
[2020-08-02 07:00] VITALS: BP 147/66
[2020-08-02] MEDS ORDERED: LEVOTHYROXINE 125 MCG TABLET PO SCH (07:00)
[2020-08-02] MEDS: INSULIN LISPRO 300 UNITS/3 ML VIAL. SQ SCH ×2 (08:00→12:00)
[2020-08-02] MEDS ORDERED: CARVEDILOL 12.5 MG TABLET. PO SCH (08:00)
--- NOTE | 2020-08-02 08:40 | PDOC ---
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 Hold eliquis and ASA. Vascular surgery consulted Acute anemia - likely from acute blood loss, will type and screen, will transfuse if Hb < 7 CAD s/p CABG - hold ASA for bleeding, cont cardiac meds Hyponatremia - acutely likely from hypovolemia, will encourage PO PVD s/p toe amputations and CEA HTN - cont meds Hypothyroidism - cont levothyroxine HLD - cont statin DM2 - sliding scale insulin dCHF - not in acute CHF Carotid vascular disease - s/p Right CEA Recent right CVA - posterior aspect of the right MCA territory - temporal operculum and a possible acute infarct in the right parietal lobe. CKD - Stable FEN - Cardiac diet PPX - SCDs FULL CODE Dispo - inpatient History of Present Illness History of Present Illness Mr Kuo is a 65 yo M w/ PMHx CAD s/p CABG, PVD s/p toe amputations, HTN, hypothyroidism, HLD, DM2, dCHF, and recent right CVA and right CEA who is presenting from acute rehab to the emergency department 08/01/2020 with neck swelling after right carotid endarterectomy. The surgery was on 07/28/2020. He was recovering at [facility] went over the past day he has had worsening swelling of the area. Over the past 8 hours prior to ED visit he has noticed difficulty swallowing. He reports normal breathing without any difficulty. He denies any fevers. He denies any significant amount of pain in the area of the when he swallows. Labs with WBC 9.3, Hb 7.3, Platelets 235, INR 1.4, Na 131, K 4.3, BUN 28, Cr 1.6, glucose 266, Alb 3.2 Bedside US showed no vascular occlusions Admitted for further care Neck swelling improved. Swallowing improved. Hb stable at 7.4. Feels better. D/w bedside, ready to return to rehab. Plan: Hematoma likely secondary to the patient's therapeutic anticoagulation initiated following surgery. Hold the patient's anticoagulants until his hematoma has resolved. The patient can shower and clean the site daily. He can be discharged back to rehab when a bed is available. No surgical therapy is indicated. F/u at Vascular surgery office in 2 weeks. Vitals/I&O Vitals/I&O: Vital Signs Date Time Temp Pulse Resp B/P (MAP) Pulse Ox O2 Delivery O2 Flow Rate FiO2 08/02/20 08:09 95 147/66 08/02/20 07:00 97.9 16 100 Room Air 97.9 I & O 08/01/20 08/01/20 08/02/20 15:00 23:00 07:00 Output Total 300 ml 650 ml Balance -300 ml -650 ml Physical Exam General: Alert, Oriented X3, Cooperative, No acute distress Lungs: Clear Abdomen: Normal bowel sounds, Soft, No tenderness, No hepatosplenomegaly, No masses Extremities: No clubbing, No cyanosis, No edema, Normal pulses, No tenderness/swelling Skin: No rashes, No breakdown, No significant lesion Labs Labs: Laboratory Tests Test 08/01/20 11:39 08/01/20 18:25 08/01/20 20:25 08/02/20 07:28 White Blood Count 9.3 x10^3/uL (4.0-11.0) Red Blood Count 2.53 x10^6/uL (4.30-5.70) Hemoglobin 7.3 g/dL (13.0-17.5) Hematocrit 21.0 % (39.0-53.0) Mean Corpuscular Volume 83 fL (79-100) Mean Corpuscular Hemoglobin 29 pg (25-35) Mean Corpuscular Hemoglobin Concent 35 g/dL (31-37) Red Cell Distribution Width 14.1 % (11.5-14.5) Platelet Count 235 x10^3/uL (140-400) Neutrophils (%) (Auto) 75 % (31-73) Lymphocytes (%) (Auto) 12 % (24-48) Monocytes (%) (Auto) 8 % (0-9) Eosinophils (%) (Auto) 4 % (0-3) Basophils (%) (Auto) 1 % (0-3) Neutrophils # (Auto) 6.9 x10^3/uL (1.8-7.7) Lymphocytes # (Auto) 1.1 x10^3/uL (1.0-4.8) Monocytes # (Auto) 0.8 x10^3/uL (0.0-1.1) Eosinophils # (Auto) 0.4 x10^3/uL (0.0-0.7) Basophils # (Auto) 0.1 x10^3/uL (0.0-0.2) Prothrombin Time 17.0 SEC (11.7-14.0) Prothromb Time International Ratio 1.4 (0.8-1.1) Activated Partial Thromboplast Time 38 SEC (24-38) Sodium Level 131 mmol/L (136-145) Potassium Level 4.3 mmol/L (3.5-5.1) Chloride Level 99 mmol/L (98-107) Carbon Dioxide Level 21 mmol/L (21-32) Anion Gap 11 (6-14) Blood Urea Nitrogen 28 mg/dL (8-26) Creatinine 1.6 mg/dL (0.7-1.3) Estimated GFR (Cockcroft-Gault) 43.6 BUN/Creatinine Ratio 18 (6-20) Glucose Level 266 mg/dL (70-99) Calcium Level 8.9 mg/dL (8.5-10.1) Total Bilirubin 0.7 mg/dL (0.2-1.0) Aspartate Amino Transf (AST/SGOT) 20 U/L (15-37) Alanine Aminotransferase (ALT/SGPT) 19 U/L (16-63) Alkaline Phosphatase 123 U/L (46-116) Troponin I Quantitative < 0.017 ng/mL (0.000-0.055) Total Protein 6.5 g/dL (6.4-8.2) Albumin 3.2 g/dL (3.4-5.0) Albumin/Globulin Ratio 1.0 (1.0-1.7) Glucose (Fingerstick) 141 mg/dL (70-99) 122 mg/dL (70-99) 142 mg/dL (70-99) Assessment and Plan Assessmemt and Plan Problems Medical Problems: (1) Neck swelling Status: Acute Comment Review of Relevant I have reviewed the following items yohannes (where applicable) has been applied. Medications: Current Medications Medications (Trade) Dose Ordered Sig/Cyndy Route PRN Reason Start Time Stop Time Status Last Admin Dose Admin Guaifenesin (Robitussin) 200 mg PRN Q4HRS PRN PO COUGH 08/01/20 14:30 08/02/20 02:47 Levothyroxine Sodium (Synthroid) 125 mcg DAILY07 PO 08/02/20 07:00 08/02/20 06:31 Carvedilol (Coreg) 25 mg BIDWMEALS PO 08/02/20 08:00 08/02/20 08:09 Isosorbide Mononitrate (Imdur) 60 mg BID PO 08/01/20 21:00 08/01/20 21:22 Justifications for Admission Other Justification ANNELISE NGUYEN MD Aug 02, 2020 08:40
[2020-08-02] MEDS ORDERED: ATORVASTATIN CALCIUM 40 MG TABLET. PO SCH (09:00)
[2020-08-02] MEDS ORDERED: amLODIPine BESYLATE 5 MG TABLET PO SCH (09:00)
[2020-08-02 09:31] LABS: BASO # 0.1 x10^3/uL (0.0-0.2); BASO % 1 % (0-3); EOS # 0.4 x10^3/uL (0.0-0.7); EOS % 4 % (0-3); HEMATOCRIT 21.5 % (39.0-53.0); HEMOGLOBIN 7.4 g/dL (13.0-17.5); LYMPH % 11 % (24-48); MEAN CORPUSCULAR HEMOGLOBIN 29 pg (25-35); MEAN CORPUSCULAR HGB CONC 35 g/dL (31-37); MEAN CORPUSCULAR VOLUME 82 fL (79-100); MONO # 0.8 x10^3/uL (0.0-1.1); MONO % 8 % (0-9); NEUT # 7.3 x10^3/uL (1.8-7.7); NEUT % 77 % (31-73); PLATELET COUNT 254 x10^3/uL (140-400); RED BLOOD COUNT 2.61 x10^6/uL (4.30-5.70); RED CELL DISTRIBUTION WIDTH 14.3 % (11.5-14.5); WHITE BLOOD COUNT 9.5 x10^3/uL (4.0-11.0)
[2020-08-02 09:33] LABS: CALCIUM 9.1 mg/dL (8.5-10.1); CREATININE 1.4 mg/dL (0.7-1.3); GFR 50.9
[2020-08-02 11:00] VITALS: BP 159/90
--- NOTE | 2020-08-02 11:44 | NUR ---
Bedside Swallow Evaluation completed. Impressions: Functional oropharyngeal swallow w/o s/s aspiration across all consistencies assessed including large volume cup and straw drinking of thin liquids. Mastication inefficiency r/t poor/missing dentition. Pt reports eating soft foods or having food cut up very well and is agreeable to modified diet of dysphagia II (ground meat) diet while in hospital. Anticipate safe and efficient intake of PO intake for meds and nutritional needs. Recommendations: Initiate dysphagia II diet w/ thin liquids. General swallow precautions. Pt will need assist w/ set up. Meds as abhishek. ST f/u per POC.
--- NOTE | 2020-08-02 11:46 | PDOC ---
SURGICAL PROGRESS NOTE DATE: 08/02/20 TIME: 11:44 Subjective Patient was seen and examined at the bedside and overall is doing well. He has no complaints. He has no difficulty swallowing or speaking. Vital Signs Vital Signs Date Time Temp Pulse Resp B/P (MAP) Pulse Ox O2 Delivery O2 Flow Rate FiO2 08/02/20 08:09 95 147/66 08/02/20 07:55 Room Air 08/02/20 07:00 97.9 16 100 97.9 I&O Intake and Output 08/02/20 07:00 Output Total 950 ml Balance -950 ml Output Urine Total 950 ml General: Alert, Oriented X3, Cooperative HEENT: Other (Right neck hematoma is soft, there is no active bleeding, incision is intact) Labs Laboratory Tests Test 08/01/20 11:39 08/01/20 18:25 08/01/20 20:25 08/02/20 07:28 White Blood Count 9.3 x10^3/uL (4.0-11.0) Red Blood Count 2.53 x10^6/uL (4.30-5.70) Hemoglobin 7.3 g/dL (13.0-17.5) Hematocrit 21.0 % (39.0-53.0) Mean Corpuscular Volume 83 fL (79-100) Mean Corpuscular Hemoglobin 29 pg (25-35) Mean Corpuscular Hemoglobin Concent 35 g/dL (31-37) Red Cell Distribution Width 14.1 % (11.5-14.5) Platelet Count 235 x10^3/uL (140-400) Neutrophils (%) (Auto) 75 % (31-73) Lymphocytes (%) (Auto) 12 % (24-48) Monocytes (%) (Auto) 8 % (0-9) Eosinophils (%) (Auto) 4 % (0-3) Basophils (%) (Auto) 1 % (0-3) Neutrophils # (Auto) 6.9 x10^3/uL (1.8-7.7) Lymphocytes # (Auto) 1.1 x10^3/uL (1.0-4.8) Monocytes # (Auto) 0.8 x10^3/uL (0.0-1.1) Eosinophils # (Auto) 0.4 x10^3/uL (0.0-0.7) Basophils # (Auto) 0.1 x10^3/uL (0.0-0.2) Prothrombin Time 17.0 SEC (11.7-14.0) Prothromb Time International Ratio 1.4 (0.8-1.1) Activated Partial Thromboplast Time 38 SEC (24-38) Sodium Level 131 mmol/L (136-145) Potassium Level 4.3 mmol/L (3.5-5.1) Chloride Level 99 mmol/L (98-107) Carbon Dioxide Level 21 mmol/L (21-32) Anion Gap 11 (6-14) Blood Urea Nitrogen 28 mg/dL (8-26) Creatinine 1.6 mg/dL (0.7-1.3) Estimated GFR (Cockcroft-Gault) 43.6 BUN/Creatinine Ratio 18 (6-20) Glucose Level 266 mg/dL (70-99) Calcium Level 8.9 mg/dL (8.5-10.1) Total Bilirubin 0.7 mg/dL (0.2-1.0) Aspartate Amino Transf (AST/SGOT) 20 U/L (15-37) Alanine Aminotransferase (ALT/SGPT) 19 U/L (16-63) Alkaline Phosphatase 123 U/L (46-116) Troponin I Quantitative < 0.017 ng/mL (0.000-0.055) Total Protein 6.5 g/dL (6.4-8.2) Albumin 3.2 g/dL (3.4-5.0) Albumin/Globulin Ratio 1.0 (1.0-1.7) Glucose (Fingerstick) 141 mg/dL (70-99) 122 mg/dL (70-99) 142 mg/dL (70-99) Test 08/02/20 08:50 White Blood Count 9.5 x10^3/uL (4.0-11.0) Red Blood Count 2.61 x10^6/uL (4.30-5.70) Hemoglobin 7.4 g/dL (13.0-17.5) Hematocrit 21.5 % (39.0-53.0) Mean Corpuscular Volume 82 fL (79-100) Mean Corpuscular Hemoglobin 29 pg (25-35) Mean Corpuscular Hemoglobin Concent 35 g/dL (31-37) Red Cell Distribution Width 14.3 % (11.5-14.5) Platelet Count 254 x10^3/uL (140-400) Neutrophils (%) (Auto) 77 % (31-73) Lymphocytes (%) (Auto) 11 % (24-48) Monocytes (%) (Auto) 8 % (0-9) Eosinophils (%) (Auto) 4 % (0-3) Basophils (%) (Auto) 1 % (0-3) Neutrophils # (Auto) 7.3 x10^3/uL (1.8-7.7) Lymphocytes # (Auto) 1.0 x10^3/uL (1.0-4.8) Monocytes # (Auto) 0.8 x10^3/uL (0.0-1.1) Eosinophils # (Auto) 0.4 x10^3/uL (0.0-0.7) Basophils # (Auto) 0.1 x10^3/uL (0.0-0.2) Sodium Level 135 mmol/L (136-145) Potassium Level 4.0 mmol/L (3.5-5.1) Chloride Level 102 mmol/L (98-107) Carbon Dioxide Level 22 mmol/L (21-32) Anion Gap 11 (6-14) Blood Urea Nitrogen 22 mg/dL (8-26) Creatinine 1.4 mg/dL (0.7-1.3) Estimated GFR (Cockcroft-Gault) 50.9 Glucose Level 134 mg/dL (70-99) Calcium Level 9.1 mg/dL (8.5-10.1) Laboratory Tests Test 08/01/20 18:25 08/01/20 20:25 08/02/20 07:28 08/02/20 08:50 Glucose (Fingerstick) 141 mg/dL (70-99) 122 mg/dL (70-99) 142 mg/dL (70-99) White Blood Count 9.5 x10^3/uL (4.0-11.0) Red Blood Count 2.61 x10^6/uL (4.30-5.70) Hemoglobin 7.4 g/dL (13.0-17.5) Hematocrit 21.5 % (39.0-53.0) Mean Corpuscular Volume 82 fL (79-100) Mean Corpuscular Hemoglobin 29 pg (25-35) Mean Corpuscular Hemoglobin Concent 35 g/dL (31-37) Red Cell Distribution Width 14.3 % (11.5-14.5) Platelet Count 254 x10^3/uL (140-400) Neutrophils (%) (Auto) 77 % (31-73) Lymphocytes (%) (Auto) 11 % (24-48) Monocytes (%) (Auto) 8 % (0-9) Eosinophils (%) (Auto) 4 % (0-3) Basophils (%) (Auto) 1 % (0-3) Neutrophils # (Auto) 7.3 x10^3/uL (1.8-7.7) Lymphocytes # (Auto) 1.0 x10^3/uL (1.0-4.8) Monocytes # (Auto) 0.8 x10^3/uL (0.0-1.1) Eosinophils # (Auto) 0.4 x10^3/uL (0.0-0.7) Basophils # (Auto) 0.1 x10^3/uL (0.0-0.2) Sodium Level 135 mmol/L (136-145) Potassium Level 4.0 mmol/L (3.5-5.1) Chloride Level 102 mmol/L (98-107) Carbon Dioxide Level 22 mmol/L (21-32) Anion Gap 11 (6-14) Blood Urea Nitrogen 22 mg/dL (8-26) Creatinine 1.4 mg/dL (0.7-1.3) Estimated GFR (Cockcroft-Gault) 50.9 Glucose Level 134 mg/dL (70-99) Calcium Level 9.1 mg/dL (8.5-10.1) Problem List Problems Medical Problems: (1) Neck swelling Status: Acute Assessment/Plan Status post right carotid endarterectomy--patient has a soft hematoma likely secondary to the patient's therapeutic anticoagulation initiated following surgery. We will hold the patient's anticoagulants until his hematoma has resolved. The patient can shower and clean the site daily. He can be discharged back to rehab when a bed is available. No surgical therapy is indicated. All questions were answered to his satisfaction. We will see him back in our office in 2 weeks. Justicifation of Admission Dx: Justifications for Admission: Justification of Admission Dx: N/A JUANY PUENTE DO Aug 02, 2020 11:46
[2020-08-02] MEDS: ISOSORBIDE MONONITRATE ER 30 MG TAB.ER.24H PO SCH (12:11)
--- NOTE | 2020-08-02 14:21 | SNU/HH DC ---
DISCHARGE ORDERS DISCHARGE INFORMATION: DISCHARGE DATE: Aug 02, 2020 FINAL DIAGNOSIS Problems Medical Problems: (1) Neck swelling Status: Acute CONDITION ON DISCHARGE: Stable CODE STATUS: Code Status: Full SENIOR CARE: SNF STAY <30 DAYS: Yes POST DISCHARGE ORDERS: ACTIVITY ORDERS: No restrictions WEIGHT BEARING STATUS: No restrictions DIET AFTER DISCHARGE: Cardiac FOLLOW-UP: Additional Instructions: Hematoma likely secondary to the patient's therapeutic anticoagulation initiated following surgery. Hold the patient's anticoagulants until his hematoma has resolved. The patient can shower and clean the site daily. He can be discharged back to rehab when a bed is available. No surgical therapy is indicated. F/u at Vascular surgery office in 2 weeks. TREATMENT/EQUIPMENT ORDERS: ADAPTIVE EQUIPMENT NEEDED: None RESPIRATORY EQUIPMENT NEEDED: Oxygen Physical Therapy For: Evalulation/Treatment Occupational Therapy For: Evaluation/Treatment Speech Language Pathology For: Evaluation/Treatment DISCHARGE MEDICATIONS: Home Meds Active Scripts Amlodipine Besylate (AMLODIPINE BESYLATE) 5 Mg Tablet, 2.5 MG PO DAILY for htn for 30 Days, #15 TAB Prov:CASTLE,NIAL K III DO 07/29/20 Reported Medications Isosorbide Mononitrate (ISOSORBIDE MONONITRATE) 20 Mg Tablet, 50 MG PO BID, TAB 03/02/18 [place]-3 Fatty Acids/Fish Oil (FISH OIL 1,200 MG SOFTGEL) 1 Each Capsule, 1 EACH PO BID 04/24/14 Multivitamin (MULTI VITAMIN DAILY) 1 Each Tablet, 1 EACH PO 04/24/14 Atorvastatin Calcium (ATORVASTATIN CALCIUM) 40 Mg Tablet, 1 TAB PO DAILY, #30 TAB 5 Refills 04/24/14 Carvedilol (CARVEDILOL) 25 Mg Tablet, 1 TAB PO BID, #180 TAB 1 Refill 04/24/14 Levothyroxine Sodium (LEVOTHYROXINE SODIUM) 125 Mcg Tablet, 1 TAB PO DAILY, #30 TAB 5 Refills 04/24/14 Glimepiride (GLIMEPIRIDE) 4 Mg Tablet, 1 TAB PO DAILY, #30 TAB 5 Refills 04/24/14 Discontinued Reported Medications Aspirin (ASPIRIN) 81 Mg Tab.chew, 1 TAB PO DAILY, #30 TAB 3 Refills 04/24/14 Losartan Potassium (LOSARTAN POTASSIUM) 100 Mg Tablet, 1 TAB PO DAILY, #30 TAB 5 Refills 04/24/14 Furosemide (FUROSEMIDE) 40 Mg Tablet, 1 TAB PO DAILY, #30 TAB 5 Refills 04/24/14 ANNELISE NGUYEN MD Aug 02, 2020 14:21
--- NOTE | 2020-08-02 14:22 | PDOC3 ---
Discharge Summary Visit Information Date of Admission: Aug 01, 2020 Date of Discharge: Aug 02, 2020 Admitting Diagnosis: Neck swelling Final Diagnosis Problems Medical Problems: (1) Neck swelling Status: Acute Brief Hospital Course Allergies Allergies Coded Allergies Type Severity Reaction Last Updated Verified No Known Drug Allergies 05/03/14 No Vital Signs Vital Signs Date Time Temp Pulse Resp B/P (MAP) Pulse Ox O2 Delivery O2 Flow Rate FiO2 08/02/20 12:12 65 159/90 08/02/20 11:00 97.8 18 98 Room Air 97.8 Lab Results Laboratory Tests Test 08/01/20 11:39 08/01/20 18:25 08/01/20 20:25 08/02/20 07:28 White Blood Count 9.3 x10^3/uL (4.0-11.0) Red Blood Count 2.53 x10^6/uL (4.30-5.70) Hemoglobin 7.3 g/dL (13.0-17.5) Hematocrit 21.0 % (39.0-53.0) Mean Corpuscular Volume 83 fL (79-100) Mean Corpuscular Hemoglobin 29 pg (25-35) Mean Corpuscular Hemoglobin Concent 35 g/dL (31-37) Red Cell Distribution Width 14.1 % (11.5-14.5) Platelet Count 235 x10^3/uL (140-400) Neutrophils (%) (Auto) 75 % (31-73) Lymphocytes (%) (Auto) 12 % (24-48) Monocytes (%) (Auto) 8 % (0-9) Eosinophils (%) (Auto) 4 % (0-3) Basophils (%) (Auto) 1 % (0-3) Neutrophils # (Auto) 6.9 x10^3/uL (1.8-7.7) Lymphocytes # (Auto) 1.1 x10^3/uL (1.0-4.8) Monocytes # (Auto) 0.8 x10^3/uL (0.0-1.1) Eosinophils # (Auto) 0.4 x10^3/uL (0.0-0.7) Basophils # (Auto) 0.1 x10^3/uL (0.0-0.2) Prothrombin Time 17.0 SEC (11.7-14.0) Prothromb Time International Ratio 1.4 (0.8-1.1) Activated Partial Thromboplast Time 38 SEC (24-38) Sodium Level 131 mmol/L (136-145) Potassium Level 4.3 mmol/L (3.5-5.1) Chloride Level 99 mmol/L (98-107) Carbon Dioxide Level 21 mmol/L (21-32) Anion Gap 11 (6-14) Blood Urea Nitrogen 28 mg/dL (8-26) Creatinine 1.6 mg/dL (0.7-1.3) Estimated GFR (Cockcroft-Gault) 43.6 BUN/Creatinine Ratio 18 (6-20) Glucose Level 266 mg/dL (70-99) Calcium Level 8.9 mg/dL (8.5-10.1) Total Bilirubin 0.7 mg/dL (0.2-1.0) Aspartate Amino Transf (AST/SGOT) 20 U/L (15-37) Alanine Aminotransferase (ALT/SGPT) 19 U/L (16-63) Alkaline Phosphatase 123 U/L (46-116) Troponin I Quantitative < 0.017 ng/mL (0.000-0.055) Total Protein 6.5 g/dL (6.4-8.2) Albumin 3.2 g/dL (3.4-5.0) Albumin/Globulin Ratio 1.0 (1.0-1.7) Glucose (Fingerstick) 141 mg/dL (70-99) 122 mg/dL (70-99) 142 mg/dL (70-99) Test 08/02/20 08:50 08/02/20 11:32 White Blood Count 9.5 x10^3/uL (4.0-11.0) Red Blood Count 2.61 x10^6/uL (4.30-5.70) Hemoglobin 7.4 g/dL (13.0-17.5) Hematocrit 21.5 % (39.0-53.0) Mean Corpuscular Volume 82 fL (79-100) Mean Corpuscular Hemoglobin 29 pg (25-35) Mean Corpuscular Hemoglobin Concent 35 g/dL (31-37) Red Cell Distribution Width 14.3 % (11.5-14.5) Platelet Count 254 x10^3/uL (140-400) Neutrophils (%) (Auto) 77 % (31-73) Lymphocytes (%) (Auto) 11 % (24-48) Monocytes (%) (Auto) 8 % (0-9) Eosinophils (%) (Auto) 4 % (0-3) Basophils (%) (Auto) 1 % (0-3) Neutrophils # (Auto) 7.3 x10^3/uL (1.8-7.7) Lymphocytes # (Auto) 1.0 x10^3/uL (1.0-4.8) Monocytes # (Auto) 0.8 x10^3/uL (0.0-1.1) Eosinophils # (Auto) 0.4 x10^3/uL (0.0-0.7) Basophils # (Auto) 0.1 x10^3/uL (0.0-0.2) Sodium Level 135 mmol/L (136-145) Potassium Level 4.0 mmol/L (3.5-5.1) Chloride Level 102 mmol/L (98-107) Carbon Dioxide Level 22 mmol/L (21-32) Anion Gap 11 (6-14) Blood Urea Nitrogen 22 mg/dL (8-26) Creatinine 1.4 mg/dL (0.7-1.3) Estimated GFR (Cockcroft-Gault) 50.9 Glucose Level 134 mg/dL (70-99) Calcium Level 9.1 mg/dL (8.5-10.1) Glucose (Fingerstick) 162 mg/dL (70-99) Laboratory Tests Test 08/01/20 18:25 08/01/20 20:25 08/02/20 07:28 08/02/20 08:50 Glucose (Fingerstick) 141 mg/dL (70-99) 122 mg/dL (70-99) 142 mg/dL (70-99) White Blood Count 9.5 x10^3/uL (4.0-11.0) Red Blood Count 2.61 x10^6/uL (4.30-5.70) Hemoglobin 7.4 g/dL (13.0-17.5) Hematocrit 21.5 % (39.0-53.0) Mean Corpuscular Volume 82 fL (79-100) Mean Corpuscular Hemoglobin 29 pg (25-35) Mean Corpuscular Hemoglobin Concent 35 g/dL (31-37) Red Cell Distribution Width 14.3 % (11.5-14.5) Platelet Count 254 x10^3/uL (140-400) Neutrophils (%) (Auto) 77 % (31-73) Lymphocytes (%) (Auto) 11 % (24-48) Monocytes (%) (Auto) 8 % (0-9) Eosinophils (%) (Auto) 4 % (0-3) Basophils (%) (Auto) 1 % (0-3) Neutrophils # (Auto) 7.3 x10^3/uL (1.8-7.7) Lymphocytes # (Auto) 1.0 x10^3/uL (1.0-4.8) Monocytes # (Auto) 0.8 x10^3/uL (0.0-1.1) Eosinophils # (Auto) 0.4 x10^3/uL (0.0-0.7) Basophils # (Auto) 0.1 x10^3/uL (0.0-0.2) Sodium Level 135 mmol/L (136-145) Potassium Level 4.0 mmol/L (3.5-5.1) Chloride Level 102 mmol/L (98-107) Carbon Dioxide Level 22 mmol/L (21-32) Anion Gap 11 (6-14) Blood Urea Nitrogen 22 mg/dL (8-26) Creatinine 1.4 mg/dL (0.7-1.3) Estimated GFR (Cockcroft-Gault) 50.9 Glucose Level 134 mg/dL (70-99) Calcium Level 9.1 mg/dL (8.5-10.1) Test 08/02/20 11:32 Glucose (Fingerstick) 162 mg/dL (70-99) Brief Hospital Course Mr Kuo is a 65 yo M w/ PMHx CAD s/p CABG, PVD s/p toe amputations, HTN, hypothyroidism, HLD, DM2, dCHF, and recent right CVA and right CEA who is presenting from acute rehab to the emergency department 08/01/2020 with neck swelling after right carotid endarterectomy. The surgery was on 07/28/2020. He was recovering at [facility] went over the past day he has had worsening swelling of the area. Over the past 8 hours prior to ED visit he has noticed difficulty swallowing. He reports normal breathing without any difficulty. He denies any fevers. He denies any significant amount of pain in the area of the when he swallows. Labs with WBC 9.3, Hb 7.3, Platelets 235, INR 1.4, Na 131, K 4.3, BUN 28, Cr 1.6, glucose 266, Alb 3.2 Bedside US showed no vascular occlusions Admitted for further care Neck swelling improved. Swallowing improved. Hb stable at 7.4. Feels better. D/w bedside, ready to return to rehab. Consults: Vascular surgery Problem list: Dysphagia - possible 2/2 CVA vs neck swelling, will monitor inpatient, OFFICE COORDINATOR ev aluation Neck swelling - on right, likely small post-op hematoma, will monitor. Hold eliquis and ASA. Vascular surgery consulted Acute anemia - likely from acute blood loss, will type and screen, will transfuse if Hb < 7 CAD s/p CABG - hold ASA for bleeding, cont cardiac meds Hyponatremia - acutely likely from hypovolemia, will encourage PO PVD s/p toe amputations and CEA HTN - cont meds Hypothyroidism - cont levothyroxine HLD - cont statin DM2 - sliding scale insulin dCHF - not in acute CHF Carotid vascular disease - s/p Right CEA Recent right CVA - posterior aspect of the right MCA territory - temporal operculum and a possible acute infarct in the right parietal lobe. CKD - Stable Plan: Hematoma likely secondary to the patient's therapeutic anticoagulation initiated following surgery. Hold the patient's anticoagulants until his hematoma has resolved. The patient can shower and clean the site daily. He can be discharged back to rehab when a bed is available. No surgical therapy is indicated. F/u at Vascular surgery office in 2 weeks. Greater than 30 minutes spent on discharge to rehab Discharge Information Condition at Discharge: Improved Follow Up: Weeks Disposition/Orders: D/C to Another Facility ([facility] rehab) Scheduled Amlodipine Besylate (Amlodipine Besylate) 5 Mg Tablet, 2.5 MG PO DAILY for htn for 30 Days, #15 Prescribed by: MARGARITA OSBORNE on 07/29/20 1148 Last Action: Continued on 08/01/202048 by ANNELISE NGUYEN MD Atorvastatin Calcium (Atorvastatin Calcium) 40 Mg Tablet, 1 TAB PO DAILY, #30 Ref 5 (Reported) Entered as Reported by: LIMA BERMUDEZ on 04/24/142026 Last Action: Continued on 08/01/202048 by ANNELISE NGUYEN MD Carvedilol (Carvedilol) 25 Mg Tablet, 1 TAB PO BID, #180 Ref 1 (Reported) Entered as Reported by: LIMA BERMUDEZ on 04/24/142026 Last Action: Converted on 08/01/202048 by ANNELISE NGUYEN MD Glimepiride (Glimepiride) 4 Mg Tablet, 1 TAB PO DAILY, #30 Ref 5 (Reported) Entered as Reported by: LIMA BERMUDEZ on 04/24/142026 Isosorbide Mononitrate (Isosorbide Mononitrate) 20 Mg Tablet, 50 MG PO BID, (Reported) Entered as Reported by: Reji Holder on 03/02/182047 Last Action: Continued on 08/01/202048 by ANNELISE NGUYEN MD Levothyroxine Sodium (Levothyroxine Sodium) 125 Mcg Tablet, 1 TAB PO DAILY, #30 Ref 5 (Reported) Entered as Reported by: LIMA BERMUDEZ on 04/24/142026 Last Action: Continued on 08/01/202048 by ANNELISE NGUYEN MD [place]-3 Fatty Acids/Fish Oil (Fish Oil 1,200 Mg Softgel) 1 Each Capsule, 1 EACH PO BID, (Reported) Entered as Reported by: LIMA BERMUDEZ on 04/24/142026 Miscellaneous Medications Multivitamin (Multi Vitamin Daily) 1 Each Tablet, 1 EACH PO, (Reported) Entered as Reported by: LIMA BERMUDEZ on 04/24/142026 Discontinued Medications Aspirin (Aspirin) 81 Mg Tab.chew, 1 TAB PO DAILY, #30 Ref 3 (Reported) Entered as Reported by: LIMA BERMUDEZ on 04/24/142026 Furosemide (Furosemide) 40 Mg Tablet, 1 TAB PO DAILY, #30 Ref 5 (Reported) Entered as Reported by: LIMA BERMUDEZ on 04/24/142026 Losartan Potassium (Losartan Potassium) 100 Mg Tablet, 1 TAB PO DAILY, #30 Ref 5 (Reported) Entered as Reported by: LIMA BERMUDEZ on 04/24/142026 Justicifation of Admission Dx: Justifications for Admission: Justification of Admission Dx: N/A ANNELISE NGUYEN MD Aug 02, 2020 14:22
[2020-08-02 15:00] VITALS: BP 120/50
--- NOTE | 2020-08-02 15:45 | NUR ---
Transportation here to pick pt up. Discharge paperwork given to transportation personal. IV removed from pt without complications. Pressure dressing applied. Assisted pt into wheelchair without complications. Pt wheeled off unit without complications.
== END 2020-08-02 15:45 | disposition short-term general hospital, planned readmission (82) ==
LOC: ER 11:32 → ED HOLD 12:23 → 4 NORTH 16:29
PROVIDERS: ADMIT Internal Medicine; ATTEND Internal Medicine
DX: I63.9 Cerebral infarction, unspecified (principal); R13.10 Dysphagia, unspecified; R22.1 Localized swelling, mass and lump, neck; I25.10 Atherosclerotic heart disease of native coronary artery without angina pectoris; I13.0 Hypertensive heart and chronic kidney disease with heart failure and stage 1 through stage 4 chronic kidney disease, or unspecified chronic kidney disease; I50.9 Heart failure, unspecified; N18.9 Chronic kidney disease, unspecified; E11.22 Type 2 diabetes mellitus with diabetic chronic kidney disease; D63.1 Anemia in chronic kidney disease; I73.9 Peripheral vascular disease, unspecified; E03.9 Hypothyroidism, unspecified; E87.1 Hypo-osmolality and hyponatremia; E78.5 Hyperlipidemia, unspecified; R29.700 NIHSS score 0; E78.00 Pure hypercholesterolemia, unspecified; Z86.73 Personal history of transient ischemic attack (TIA), and cerebral infarction without residual deficits; Z95.1 Presence of aortocoronary bypass graft; Z90.49 Acquired absence of other specified parts of digestive tract; Z87.891 Personal history of nicotine dependence; Z98.890 Other specified postprocedural states
CPT/HCPCS: 36415; 80048; 80053; 82962; 84484; 85025; 85610; 85730; 86850; 86900; 86901; 92610; G0378; G0379; 99284-25

== ENCOUNTER → 2020-08-21 | Outpatient (CLI) | payer MEDICARE ==
[2020-08-02 15:00] VITALS: BP 120/50
[~2020-08-21] MED LIST changes: +APIX2.5T PO; +ASPI-886 PO; +CHOL2400 MC; +INSU100V13 SQ; +SPIR25TA5 PO
== END ==
LOC: LAB 11:09
PROVIDERS: ATTEND Surgery
DX: Z01.812 Encounter for preprocedural laboratory examination (principal); Z20.828 Contact with and (suspected) exposure to other viral communicable diseases; I65.23 Occlusion and stenosis of bilateral carotid arteries
CPT/HCPCS: U0003

== ENCOUNTER 2020-08-25 11:30 | Inpatient (IN) | payer MEDICARE ==
[~2020-08-25] VITALS: Ht 172.7 cm; Wt 89.7 kg
[~2020-08-25 11:30] MED LIST changes: -APIX2.5T PO; +HEPARIN SODIUM 5,000 UNIT in IV RINGERS,LACTATED 500ML 500 ML IRR ONE; +HYDROmorphone 2 MG/ML VIAL IV PRN; -ISOS20TA2 PO; +ISOS20TA6 PO; +IV RINGERS,LACTATED 1000ML 1,000 ML IV SCH; +LIDOCAINE 1% PF 2 ML VIAL. ID PRN; +MORPHINE SULFATE 2 MG/ML VIAL. IV PRN; +ONDANSETRON PF 4 MG/2 ML VIAL. IV PRN; +PROCHLORPERAZINE 10 MG/2 ML VIAL. IV PRN; +fentaNYL PF VIAL 100 MCG/2 ML VIAL IV PRN
[2020-08-25] MEDS ORDERED: FURO40TA4 PO (12:53)
[2020-08-25] MEDS ORDERED: INSULIN LISPRO 100 UNIT/ML 3ML VIAL for OP,RR ONLY. SQ PRN (13:00)
[2020-08-25] MEDS ORDERED: ROPIVacaine 0.5% PF 20 ML VIAL. ONE (13:29)
[2020-08-25] MEDS ORDERED: LIDOCAINE 1% PF 2 ML VIAL. NEB SCH (14:00)
[2020-08-25] MEDS ORDERED: SURGICEL FIBRILLAR 1X2 EACH. ONE (14:25)
[2020-08-25] MEDS ORDERED: LIDOCAINE 1% Multi-Dose 20 ML VIAL. ONE (14:25)
[2020-08-25] MEDS ORDERED: LIDOCAINE 1%/EPI 1:100,000 20 ML VIAL. ONE (14:25)
[2020-08-25] MEDS ORDERED: BISACODYL 10 MG SUPP.RECT. PR PRN (14:30)
[2020-08-25] MEDS ORDERED: CALCIUM CARBONATE 500 MG TAB.CHEW PO PRN (14:30)
[2020-08-25] MEDS ORDERED: MAGNESIUM HYDROXIDE 2,400 MG/30 ML ORAL.SUSP. PO PRN (14:30)
[2020-08-25] MEDS ORDERED: HYDROcodone/APAP 5/325MG 1 TAB TABLET PO PRN ×2 (14:30)
[2020-08-25] MEDS ORDERED: ZOLPIDEM 5 MG TABLET. PO PRN (14:30)
[2020-08-25] MEDS ORDERED: ONDANSETRON PF 4 MG/2 ML VIAL. IVP PRN (14:30)
[2020-08-25] MEDS ORDERED: ACETAMINOPHEN 325 MG TABLET. PO PRN (14:30)
[2020-08-25] MEDS ORDERED: MORPHINE SULFATE 2 MG/ML VIAL. IV PRN (14:30)
[2020-08-25] MEDS ORDERED: MAG HYDROX/ALUMINUM HYD/SIMETH 30 ML ORAL.SUSP PO PRN (14:30)
--- NOTE | 2020-08-25 14:44 | PDOC1 ---
History and Physical Date of Admission Date of Admission DATE: 08/25/20 TIME: 14:32 Identification/Chief Complaint Chief Complaint Carotid endarterectomy Source Source: Chart review, Patient History of Present Illness History of Present Illness Patient 65-year-old male with past medical history of CVA, CHF, right carotid endarterectomy (07/28/20), who was admitted for left carotid endarterectomy. He was recently seen in outpatient service for subacute CVA. At that time he was recommended to be treated with Eliquis 2.5 mg twice daily for possible new A. fib. I do not see Eliquis on his list of home medications. I have been consulted for further medical management following his surgical intervention today. Past Medical History Cardiovascular: CAD, CHF, HTN, RI, Hyperlipidemia, Other Pulmonary: Bronchitis CENTRAL NERVOUS SYSTEM: Periperal neuropathy, Other Renal/: Chronic renal insuff Endocrine: Diabetes, Hypothyroidism Past Surgical History Past Surgical History: CABG, Tonsillectomy, Other Family History Family History: Coronary Artery Disease, High Cholestrol, Hypertension Social History Smoke: Quit ALCOHOL: none Drugs: None Current Medications Current Medications Current Medications Ondansetron HCl (Zofran) 4 mg PRN Q6HRS PRN IV NAUSEA/VOMITING; Start 08/25/20 at 07:00; Stop 08/26/20 at 06:59 Fentanyl Citrate (Fentanyl 2ml Vial) 25 mcg PRN Q5MIN PRN IV MILD PAIN 1-3; Start 08/25/20 at 07:00; Stop 08/26/20 at 06:59 Fentanyl Citrate (Fentanyl 2ml Vial) 50 mcg PRN Q5MIN PRN IV MODERATE TO SEVERE PAIN; Start 08/25/20 at 07:00; Stop 08/26/20 at 06:59 Morphine Sulfate (Morphine Sulfate) 1 mg PRN Q10MIN PRN IV SEVERE PAIN 7-10; Start 08/25/20 at 07:00; Stop 08/26/20 at 06:59 Ringer's Solution 1,000 ml @ 30 mls/hr Q24H IV Last administered on 08/25/20at 13:09; Start 08/25/20 at 07:00; Stop 08/25/20 at 18:59 Lidocaine HCl (Xylocaine-Mpf 1% 2ml Vial) 2 ml PRN 1X PRN ID PRIOR TO IV START; Start 08/25/20 at 07:00; Stop 08/26/20 at 06:59 Hydromorphone HCl (Dilaudid) 0.5 mg PRN Q10MIN PRN IV SEV PAIN, Second choice; Start 08/25/20 at 07:00; Stop 08/26/20 at 06:59 Prochlorperazine Edisylate (Compazine) 5 mg PACU PRN PRN IV NAUSEA, MRX1; Start 08/25/20 at 07:00; Stop 08/26/20 at 06:59 Cefazolin Sodium/ Dextrose 50 ml @ 100 mls/hr 1X PREOP PRN IV PRIOR TO PROCEDURE; Start 08/25/20 at 06:00; Stop 08/25/20 at 18:00 Cefazolin Sodium 1 gm/Sodium Chloride 500 ml @ 500 mls/hr 1X ONCE IRR ; Start 08/25/20 at 06:00; Stop 08/25/20 at 06:59; Status DC Heparin Sodium (Porcine) 5000 unit/Ringer's Solution 505 ml @ 505 mls/hr 1X ONCE IRR ; Start 08/25/20 at 06:00; Stop 08/25/20 at 06:59; Status DC Insulin Human Lispro (HumaLOG VIAL for OP,RR ONLY) 0-10 units PRN Q1HR PRN SQ PER PROTOCOL Last administered on 08/25/20at 13:10; Start 08/25/20 at 13:00; Stop 08/26/20 at 12:59 Ropivacaine (Naropin 0.5%) 20 ml STK-MED ONCE .ROUTE ; Start 08/25/20 at 13:29; Stop 08/25/20 at 13:29; Status DC Lidocaine HCl (Xylocaine-Mpf 1% 2ml Vial) 1 ml ONCE NEB Last administered on 08/25/20at 13:51; Start 08/25/20 at 14:00 Lidocaine HCl (Lidocaine 1% 20ml Vial) 20 ml STK-MED ONCE .ROUTE ; Start 08/25/20 at 14:25; Stop 08/25/20 at 14:25; Status DC Cellulose (Surgicel Fibrillar 1x2) 1 each STK-MED ONCE .ROUTE ; Start 08/25/20 at 14:25; Stop 08/25/20 at 14:25; Status DC Lidocaine/ Epinephrine (LIDOCAINE 1%-EPI 1:100,000 Multi-Dose) 20 ml STK-MED ONCE .ROUTE ; Start 08/25/20 at 14:25; Stop 08/25/20 at 14:25; Status DC Active Scripts Active Reported Furosemide 40 Mg Tablet 40 Mg PO DAILY Aspirin Ec (Aspirin) 81 Mg Tablet.dr 1 Tab PO BID Levemir (Insulin Detemir) 100 Unit/1 Ml Vial 10 Unit SQ HS Spironolactone 25 Mg Tablet 1 Tab PO DAILY Vitamin D3 (Cholecalciferol (Vitamin D3)) 2,400 Unit/1 Ml Liquid 50,000 Unit MC WEEKLY Amlodipine Besylate 5 Mg Tablet 5 Mg PO DAILY Isosorbide Mononitrate 20 Mg Tablet 60 Mg PO BID Fish Oil 1,200 Mg Softgel ([place]-3 Fatty Acids/Fish Oil) 1 Each Capsule 1 Each PO BID Multi Vitamin Daily (Multivitamin) 1 Each Tablet 1 Each PO Atorvastatin Calcium 40 Mg Tablet 1 Tab PO DAILY Carvedilol 25 Mg Tablet 1 Tab PO BID hold if heart rate less than 60 or systolic BP less than 100 Levothyroxine Sodium 125 Mcg Tablet 1 Tab PO DAILY Glimepiride 4 Mg Tablet 1 Tab PO DAILY Allergies Allergies: Coded Allergies: No Known Drug Allergies (Unverified , 08/19/20) ROS Review of System GENERAL: No history of weight change, weakness or fevers. SKIN: No bruising, hair changes or rashes. EYES: No blurred, double or loss of vision. NOSE AND THROAT: No history of nosebleeds, hoarseness or sore throat. HEART: Denies chest pain, denies palpitations. LUNGS: Denies cough, hemoptysis, wheezing or shortness of breath. GASTROINTESTINAL: Denies nausea, vomiting, abdominal pain. GENITOURINARY: Denies dysuria, frequency, urgency, hematuria. NEUROLOGIC: Denies history of numbness, tingling, tremor or weakness. PSYCHIATRIC: Denies anxiety, denies depression. ENDOCRINE: No history of heat or cold intolerance, polyuria or polydipsia. EXTREMITIES: Denies muscle weakness, joint pain, pain on walking or stiffness. Physical Exam Physical Exam General: Alert, Oriented X3, Cooperative, No acute distress HEENT: Patient is blind in his left eye. Right eye PERRLA, right eye EOMI Lungs: Clear to auscultation, Normal air movement Heart: Tachycardic, irregularly irregular Cardiovascular: S1, S2 Abdomen: Normal bowel sounds, Soft, No tenderness Extremities: No clubbing, No cyanosis Skin: No rashes, No significant lesion Neuro: Normal speech, Normal tone, Sensation intact Psych/Mental Status: Mental status NL, Mood NL Vitals Vitals Vital Signs Date Time Temp Pulse Resp B/P (MAP) Pulse Ox O2 Delivery O2 Flow Rate FiO2 08/25/20 13:49 97.9 72 16 164/82 97 Room Air 97.9 164/70 Labs Labs Laboratory Tests Test 08/25/20 12:39 Glucose (Fingerstick) 152 mg/dL (70-99) Laboratory Tests Test 08/25/20 12:39 Glucose (Fingerstick) 152 mg/dL (70-99) VTE Prophylaxis Ordered VTE Prophylaxis Devices: Contraindicated VTE Pharmacological Prophylaxi: Yes Assessment/Plan Assessment/Plan Left carotid endarterectomy A. fib Peripheral vascular disease Diabetic neuropathy CKD stage III Diastolic CHF DM2 Plan: Patient is s/p right carotid endarterectomy, and to have left carotid endarterectomy today. Patient had recent echocardiogram on 07/25/2020 with ejection fraction 55%. During that hospitalization he was recommended to be started on Eliquis 2.5 mg twice daily. We will continue this medication for A. fib and VTE prophylaxis. Consult cardiology for further recommendations Resume home medications Hemoglobin A1c pending FEN - Cardiac diet PPX - Eliquis FULL CODE Dispo - inpatient for above Justifications for Admission Other Justification ALTON REDDY MD Aug 25, 2020 14:44
[2020-08-25] MEDS ORDERED: fentaNYL PF VIAL 250 MCG/5 ML VIAL ONE (14:54)
[2020-08-25] MEDS ORDERED: MIDAZOLAM HCL/PF 2 MG/2 ML VIAL. ONE (14:54)
[2020-08-25] MEDS ORDERED: DEXTROSE 50% 25 GM / 50ML DISP.SYRIN. IV PRN (15:00)
[2020-08-25] MEDS ORDERED: METOPROLOL IV PUSH 5 MG/5 ML VIAL. IVP ONE ×2 (15:28→16:51)
[2020-08-25] MEDS ORDERED: HEPARIN for IV BOLUS 10,000 UNIT/10 ML VIAL. ONE (15:28)
[2020-08-25] MEDS ORDERED: hydrALAZINE 20 MG/ML VIAL. ONE (15:35)
[2020-08-25] MEDS ORDERED: PROTAMINE 50 MG/5 ML VIAL. IV ONE (16:45)
[2020-08-25] MEDS ORDERED: PROPOFOL 10 MG/ML (20ML) VIAL. IV ONE (16:49)
[2020-08-25] MEDS ORDERED: niCARdipine INJ. IV ONE (16:55)
--- NOTE | 2020-08-25 17:00 | PDOC ---
BRIEF OPERATIVE NOTE Date: Aug 25, 2020 Pre-Op Diagnosis Left carotid stenosis Post-Op Diagnosis same Procedure Performed Left carotid endarterectomy Surgeon Dr. Lopez Access Developer Kunal Villatoro NP Anesthesia Type: Regional Blood Loss 50cc Specimens Obtained discarded Findings greater than 80% stenosis Complications none Operative Note see dictated note KUNAL VILLATORO HUMAN SERVICES CARE SPECIALIST Aug 25, 2020 17:00
[2020-08-25] MEDS ORDERED: hydrALAZINE 20 MG/ML VIAL. IVP PRN (17:15)
[2020-08-25] MEDS ORDERED: LABETALOL 20 MG/4 ML DISP.SYRIN. IVP PRN (17:15)
[2020-08-25] MEDS: INSULIN LISPRO 300 UNITS/3 ML VIAL. SQ SCH (19:00)
--- NOTE | 2020-08-25 19:06 | OP ---
DATE OF SURGERY: 08/25/2020 PREOPERATIVE DIAGNOSIS: Asymptomatic, critical left carotid stenosis. POSTOPERATIVE DIAGNOSIS: Asymptomatic, critical left carotid stenosis. OPERATION PERFORMED: Left carotid endarterectomy. SURGEON: Tyler Jauregui MD LIBRARY SERIALS ASSISTANT: Shawna Fowler APRN ANESTHESIA: Cervical block with monitored sedation. INDICATIONS FOR SURGERY: This is a 65-year-old gentleman who had previous right carotid endarterectomy for symptomatic disease. He had a mild hemispheric stroke prior to his right carotid endarterectomy. He has recovered nicely from that and from his operation. He had an even more critical stenosis of the left internal carotid artery, and left carotid endarterectomy was recommended. The operation, risks, and benefits were explained to the patient. Both he and his understand and wished to proceed with surgery. OPERATIVE FINDINGS: The patient had severe reaction around the vessels making dissection quite tedious and difficult. Proximally, the disease was found to extend as far as could be dissected. Distally, the plaque extended for about 4 cm on to the internal carotid artery. An eversion endarterectomy technique was utilized and the patient tolerated well without the need for a shunt. DESCRIPTION OF PROCEDURE: The patient was placed in the supine position with the head tilted to the right. A cervical block had been administered by Anesthesia. A timeout was called and the correct operation, correct operative site and correct patient were all confirmed. The patient received 2 grams of IV antibiotics. An incision was then made along the anterior border of the sternocleidomastoid muscle. Dissection was carried down. The common carotid artery was not initially able to be palpated because of severe reactive tissue around the vessel as if the patient had had radiation; however, he has not. The bifurcation was palpable and that was exposed and then the common carotid was traced proximally. Again, there was dense scar tissue type reaction around the artery, making dissection extremely tedious. An approximately 2 inches of the common carotid artery were dissected and could not be dissected any further as the vessel dove very deeply. The bifurcation was then completely exposed. The external carotid was exposed and encircled with a vessel loop. The patient was then given 7000 units of heparin and after 3 minutes of circulation, gentle traction was placed downward on the external carotid. The internal carotid artery was then dissected distally until it was soft without any palpable plaque. This was approximately 6 cm distally. Clamps were then placed on the common carotid artery and on the distal internal carotid artery and the patient tolerated this well. The bifurcation of the common carotid was then transected in a tangential manner and an eversion endarterectomy was performed of the internal carotid artery. A very nice feathered endpoint was obtained under direct visualization. Care was taken to remove all loose strands and the wound was copiously irrigated. Loupe magnification was utilized. The arteriotomy was then extended proximally and an endarterectomy was performed of the common and external carotid arteries. The bifurcation was then reanastomosed with 6-0 Prolene. Prior to completing the anastomosis, the vessels were flushed first antegrade and then retrograde. The anastomosis was then completed and flow restored for several beats to the external carotid system with a clamp on the proximal internal carotid and then that was released and flow was instituted into the internal carotid. Protamine 30 mg was given and pressure was held. Hemostasis was excellent. A fully perforated Faizan-Baldwin drain was then placed within the wound space and brought through a separate small stab incision. The platysma muscle was then approximated with 2-0 Vicryl, the skin with 4-0 intracuticular Vicryl and Steri-Strips were applied. A sterile dressing was applied. ESTIMATED BLOOD LOSS: 50 mL. DRAINS: Faizan-Baldwin to bulb suction. SPECIMENS: Severe calcific plaque of the common, external, and internal carotid arteries, which was not sent to pathology. TYLER JAUREGUI MD DR: JAKY/antwon JOB#: [id number] / [id number]
[2020-08-25 19:32] VITALS: BP 139/75
[2020-08-25] MEDS ORDERED: ANTI-COAG MONITOR BY PHARMACY. MC PRN (22:15)
[2020-08-25 22:50] VITALS: BP 131/72
[2020-08-25] MEDS ORDERED: INSULIN GLARGINE SYRINGE. SQ SCH (23:00)
[2020-08-26 03:05] VITALS: BP 132/67
[2020-08-26] MEDS ORDERED: LEVOTHYROXINE 125 MCG TABLET PO SCH (06:00)
[2020-08-26 07:00] VITALS: BP 146/77
[2020-08-26 07:26] LABS: BASO % 0 % (0-3); EOS # 0.5 x10^3/uL (0.0-0.7); EOS % 6 % (0-3); HEMOGLOBIN 9.9 g/dL (13.0-17.5); LYMPH # 1.1 x10^3/uL (1.0-4.8); LYMPH % 11 % (24-48); MEAN CORPUSCULAR HEMOGLOBIN 28 pg (25-35); MEAN CORPUSCULAR HGB CONC 33 g/dL (31-37); MEAN CORPUSCULAR VOLUME 85 fL (79-100); MONO # 0.8 x10^3/uL (0.0-1.1); MONO % 8 % (0-9); NEUT # 7.2 x10^3/uL (1.8-7.7); NEUT % 75 % (31-73); PLATELET COUNT 189 x10^3/uL (140-400); RED BLOOD COUNT 3.55 x10^6/uL (4.30-5.70); RED CELL DISTRIBUTION WIDTH 15.9 % (11.5-14.5); WHITE BLOOD COUNT 9.6 x10^3/uL (4.0-11.0)
[2020-08-26 07:46] LABS: CALCIUM 8.8 mg/dL (8.5-10.1); CREATININE 1.8 mg/dL (0.7-1.3); GFR 38.1; POTASSIUM 4.8 mmol/L (3.5-5.1)
--- NOTE | 2020-08-26 07:59 | PDOC ---
Provider Note Date of Service: DATE: 08/26/20 TIME: 07:54 Provider Note Provider Note Vascular S: Patient sitting in bed, no complaints. Denies any new TIA or stroke symptoms. O: Awake and alert VSS, Temp 99.1 Neck incision dry and intact with steristrips in place. No hematoma or swelling, trachea midline. Drain removed. Mixing Machine Tender Cork Rod equal, moving all extremities. Speech clear, no facial asymmetry. A/P: POD #1 Left CEA, progressing as expected. A-fib, ok to start Eliquis with PM dose. May discharge from a surgical standpoint once he is able to ambulate in halls and medically stable. May shower in 48 hours. Keep drain covered with gauze pad. Follow up as expected. Justicifation of Admission Dx: Justifications for Admission: Justification of Admission Dx: N/A KUNAL VILLATORO APRN Aug 26, 2020 07:59
[2020-08-26] MEDS: INSULIN LISPRO 300 UNITS/3 ML VIAL. SQ SCH ×2 (08:00→13:18)
[2020-08-26] MEDS ORDERED: CARVEDILOL 12.5 MG TABLET. PO SCH (08:00)
--- NOTE | 2020-08-26 08:30 | PDOC ---
[employer] PROGRESS NOTE Date of Service DOS: DATE: 08/26/20 TIME: 08:26 Chief Complaint Chief Complaint Assessment/Plan Left carotid endarterectomy A. fib Peripheral vascular disease Diabetic neuropathy CKD stage III Diastolic CHF DM2 Plan: Patient is s/p right carotid endarterectomy, and to have left carotid endarterectomy today. Patient had recent echocardiogram on 07/25/2020 with ejection fraction 55%. During that hospitalization he was recommended to be started on Eliquis 2.5 mg twice daily. We will continue this medication for A. fib and VTE prophylaxis. Consult cardiology for further recommendations Resume home medications Hemoglobin A1c pending FEN - Cardiac diet PPX - Eliquis FULL CODE Dispo - inpatient for above History of Present Illness History of Present Illness Patient 65-year-old male with past medical history of CVA, CHF, right carotid endarterectomy (07/28/20), who was admitted for left carotid endarterectomy. He was recently seen in outpatient service for subacute CVA. At that time he was recommended to be treated with Eliquis 2.5 mg twice daily for possible new A. fib. I do not see Eliquis on his list of home medications. I have been consulted for further medical management following his surgical intervention today. 08/26: Patient seen and evaluated, postop day #1 left carotid endarterectomy. May resume Eliquis tonight. Discharge when ambulating and medically stable. Discussed with RN. Greater than 30 minutes spent managing the discharge this patient. Vitals/I&O Vitals/I&O: Vital Signs Date Time Temp Pulse Resp B/P (MAP) Pulse Ox O2 Delivery O2 Flow Rate FiO2 08/26/20 07:00 99.1 62 18 146/77 (100) 98 Nasal Cannula 3.0 99.1 I & O 08/25/20 08/25/20 08/26/20 15:00 23:00 07:00 Intake Total 2050 ml 0 ml Output Total 450 ml 750 ml Balance 1600 ml -750 ml Physical Exam General: Alert Heart: Regular rate Lungs: Clear Abdomen: Normal bowel sounds Extremities: No clubbing, No cyanosis Skin: Other (Neck incision dry and intact with steristrips in place) Labs Labs: Laboratory Tests Test 08/25/20 12:39 08/25/20 18:01 08/25/20 23:02 08/26/20 06:58 Glucose (Fingerstick) 152 mg/dL (70-99) 181 mg/dL (70-99) 120 mg/dL (70-99) White Blood Count 9.6 x10^3/uL (4.0-11.0) Red Blood Count 3.55 x10^6/uL (4.30-5.70) Hemoglobin 9.9 g/dL (13.0-17.5) Hematocrit 30.0 % (39.0-53.0) Mean Corpuscular Volume 85 fL (79-100) Mean Corpuscular Hemoglobin 28 pg (25-35) Mean Corpuscular Hemoglobin Concent 33 g/dL (31-37) Red Cell Distribution Width 15.9 % (11.5-14.5) Platelet Count 189 x10^3/uL (140-400) Neutrophils (%) (Auto) 75 % (31-73) Lymphocytes (%) (Auto) 11 % (24-48) Monocytes (%) (Auto) 8 % (0-9) Eosinophils (%) (Auto) 6 % (0-3) Basophils (%) (Auto) 0 % (0-3) Neutrophils # (Auto) 7.2 x10^3/uL (1.8-7.7) Lymphocytes # (Auto) 1.1 x10^3/uL (1.0-4.8) Monocytes # (Auto) 0.8 x10^3/uL (0.0-1.1) Eosinophils # (Auto) 0.5 x10^3/uL (0.0-0.7) Basophils # (Auto) 0.0 x10^3/uL (0.0-0.2) Sodium Level 140 mmol/L (136-145) Potassium Level 4.8 mmol/L (3.5-5.1) Chloride Level 105 mmol/L (98-107) Carbon Dioxide Level 25 mmol/L (21-32) Anion Gap 10 (6-14) Blood Urea Nitrogen 31 mg/dL (8-26) Creatinine 1.8 mg/dL (0.7-1.3) Estimated GFR (Cockcroft-Gault) 38.1 Glucose Level 94 mg/dL (70-99) Calcium Level 8.8 mg/dL (8.5-10.1) Test 08/26/20 07:11 Glucose (Fingerstick) 97 mg/dL (70-99) Comment Review of Relevant I have reviewed the following items yohannes (where applicable) has been applied. Medications: Current Medications Medications (Trade) Dose Ordered Sig/Cyndy Route PRN Reason Start Time Stop Time Status Last Admin Dose Admin Insulin Human Lispro (HumaLOG VIAL for OP,RR ONLY) 0-10 units PRN Q1HR PRN SQ PER PROTOCOL 08/25/20 13:00 08/26/20 12:59 08/25/20 13:10 Lidocaine HCl (Xylocaine-Mpf 1% 2ml Vial) 1 ml ONCE NEB 08/25/20 14:00 08/25/20 13:51 Lidocaine HCl (Lidocaine 1% 20ml Vial) 20 ml STK-MED ONCE .ROUTE 08/25/20 14:25 08/25/20 14:25 DC 08/25/20 15:07 Lidocaine/ Epinephrine (LIDOCAINE 1%-EPI 1:100,000 Multi-Dose) 20 ml STK-MED ONCE .ROUTE 08/25/20 14:25 08/25/20 14:25 DC 08/25/20 15:07 Levothyroxine Sodium (Synthroid) 125 mcg DAILY06 PO 08/26/20 06:00 08/26/20 06:13 Insulin Glargine (Lantus Syringe) 10 unit QHS SQ 08/25/20 23:00 08/25/20 22:52 Info (Anti-Coagulation Monitoring By Pharmacy) 1 each PRN DAILY PRN MC SEE COMMENTS 08/25/20 22:15 08/26/20 02:12 Justifications for Admission Other Justification ALTON REDDY MD Aug 26, 2020 08:29
[2020-08-26] MEDS ORDERED: SPIRONOLACTONE 25 MG TABLET PO SCH (09:00)
[2020-08-26] MEDS ORDERED: ASPIRIN ENTERIC COATED 81 MG TABLET.DR. PO SCH (09:00)
[2020-08-26] MEDS ORDERED: APIXABAN 2.5 MG TABLET. PO SCH (09:00)
[2020-08-26] MEDS ORDERED: FUROSEMIDE 40 MG TABLET. PO SCH (09:00)
[2020-08-26] MEDS ORDERED: GLIMEPIRIDE 2 MG TABLET. PO SCH (09:00)
[2020-08-26] MEDS ORDERED: ISOSORBIDE MONONITRATE ER 30 MG TAB.ER.24H PO SCH (09:00)
[2020-08-26] MEDS ORDERED: OMEGA-3 FATTY ACIDS/FISH OIL 1,000 MG CAPSULE. PO SCH (09:00)
[2020-08-26] MEDS ORDERED: ATORVASTATIN CALCIUM 40 MG TABLET. PO SCH (09:00)
--- NOTE | 2020-08-26 09:41 | PDOC2 ---
CARDIAC CONSULT DATE OF CONSULT Date of Consult DATE: 08/26/20 TIME: 09:40 REASON FOR CONSULT Reason for Consult: AFIB new? REFERRING PHYSICIAN Referring Physician: Benitez SOURCE Source: Chart review, Patient HISTORY OF PRESENT ILLNESS HISTORY OF PRESENT ILLNESS This is a pleasant 65 yo male admitted for planned left carotid endarterectomy. Upon admission he was then noted with AFIB which is not new for him. He was noted initially with this early Jul of last yr and was placed on eliquis. He tolerated the LCEA very well and presently his HR is controlled. Denies any chest pain or SOA. He follows with Dr. Avila at [facility]. His eliquis prior to is surgery and vascular surgery has approved for this to be restarted. No CP no SOA. PAST MEDICAL HISTORY Past Medical History Cardiovascular: CAD, CHF, HTN, MA, Hyperlipidemia, Other (Peripheral vascular disease) Pulmonary: Bronchitis CENTRAL NERVOUS SYSTEM: Periperal neuropathy, Other (Blind in left eye) Musculoskeletal: low back pain Renal/: Chronic renal insuff Endocrine: Diabetes, Hypothyroidism PAST SURGICAL HISTORY Past Surgical History CABG, Tonsillectomy, Other (Coronary stent, left fifth toe, right 2 toes amputations), right CEA FAMILY HISTORY Family History Coronary Artery Disease, High Cholestrol, Hypertension SOCIAL HISTORY Smoke: Quit ALCOHOL: none Drugs: None Lives: with Family CURRENT MEDICATIONS CURRENT MEDICATIONS Current Medications Medications (Trade) Dose Ordered Sig/Cyndy Route PRN Reason Start Time Stop Time Status Last Admin Dose Admin Insulin Human Lispro (HumaLOG VIAL for OP,RR ONLY) 0-10 units PRN Q1HR PRN SQ PER PROTOCOL 08/25/20 13:00 08/26/20 12:59 08/25/20 13:10 Lidocaine HCl (Xylocaine-Mpf 1% 2ml Vial) 1 ml ONCE NEB 08/25/20 14:00 08/25/20 13:51 Lidocaine HCl (Lidocaine 1% 20ml Vial) 20 ml STK-MED ONCE .ROUTE 08/25/20 14:25 08/25/20 14:25 DC 08/25/20 15:07 Lidocaine/ Epinephrine (LIDOCAINE 1%-EPI 1:100,000 Multi-Dose) 20 ml STK-MED ONCE .ROUTE 08/25/20 14:25 08/25/20 14:25 DC 08/25/20 15:07 Amlodipine Besylate (Norvasc) 5 mg DAILY PO 08/26/20 09:00 08/26/20 09:02 Aspirin (Ecotrin) 81 mg BID PO 08/26/20 09:00 08/26/20 09:00 Atorvastatin Calcium (Lipitor) 40 mg DAILY PO 08/26/20 09:00 08/26/20 09:01 Furosemide (Lasix) 40 mg DAILY PO 08/26/20 09:00 08/26/20 09:01 Isosorbide Mononitrate (Imdur) 60 mg BID PO 08/26/20 09:00 08/26/20 09:01 Levothyroxine Sodium (Synthroid) 125 mcg DAILY06 PO 08/26/20 06:00 08/26/20 06:13 Spironolactone (Aldactone) 25 mg DAILY PO 08/26/20 09:00 08/26/20 09:01 Carvedilol (Coreg) 25 mg BIDWMEALS PO 08/26/20 08:00 08/26/20 09:02 Glimepiride (Amaryl) 4 mg DAILY PO 08/26/20 09:00 08/26/20 09:01 Insulin Glargine (Lantus Syringe) 10 unit QHS SQ 08/25/20 23:00 08/25/20 22:52 Fish Oil (Fish Oil) 1,000 mg BID PO 08/26/20 09:00 08/26/20 09:00 Info (Anti-Coagulation Monitoring By Pharmacy) 1 each PRN DAILY PRN MC SEE COMMENTS 08/25/20 22:15 08/26/20 02:12 ALLERGIES ALLERGIES: Coded Allergies: No Known Drug Allergies (Unverified , 08/19/20) ROS Review of System 14 point ROS evaluated with pertinent positives noted per HPI PHYSICAL EXAM General: Alert, Oriented X3, Cooperative, No acute distress HEENT: Atraumatic, Mucous membr. moist/pink Lungs: Other (diminished bases) Heart: Other (AFIB) Abdomen: Soft, Other (obese) Extremities: No cyanosis, Other (trace edema) Skin: Other (left neck surgical incision intact with steristrips) Neuro: Normal speech, Sensation intact Psych/Mental Status: Mental status NL, Mood NL MUSCULOSKELETAL: Osteoarthritic changes both hands VITALS/I&O VITALS/I&O: Vital Signs Date Time Temp Pulse Resp B/P (MAP) Pulse Ox O2 Delivery O2 Flow Rate FiO2 08/26/20 09:02 62 146/77 08/26/20 07:00 99.1 18 98 Nasal Cannula 3.0 99.1 I & O 08/25/20 08/25/20 08/26/20 15:00 23:00 07:00 Intake Total 2050 ml 0 ml Output Total 450 ml 750 ml Balance 1600 ml -750 ml LABS Lab: Laboratory Tests Test 08/25/20 12:39 08/25/20 18:01 08/25/20 23:02 08/26/20 06:58 Glucose (Fingerstick) 152 mg/dL (70-99) H 181 mg/dL (70-99) H 120 mg/dL (70-99) H White Blood Count 9.6 x10^3/uL (4.0-11.0) Red Blood Count 3.55 x10^6/uL (4.30-5.70) L Hemoglobin 9.9 g/dL (13.0-17.5) L Hematocrit 30.0 % (39.0-53.0) L Mean Corpuscular Volume 85 fL (79-100) Mean Corpuscular Hemoglobin 28 pg (25-35) Mean Corpuscular Hemoglobin Concent 33 g/dL (31-37) Red Cell Distribution Width 15.9 % (11.5-14.5) H Platelet Count 189 x10^3/uL (140-400) Neutrophils (%) (Auto) 75 % (31-73) H Lymphocytes (%) (Auto) 11 % (24-48) L Monocytes (%) (Auto) 8 % (0-9) Eosinophils (%) (Auto) 6 % (0-3) H Basophils (%) (Auto) 0 % (0-3) Neutrophils # (Auto) 7.2 x10^3/uL (1.8-7.7) Lymphocytes # (Auto) 1.1 x10^3/uL (1.0-4.8) Monocytes # (Auto) 0.8 x10^3/uL (0.0-1.1) Eosinophils # (Auto) 0.5 x10^3/uL (0.0-0.7) Basophils # (Auto) 0.0 x10^3/uL (0.0-0.2) Sodium Level 140 mmol/L (136-145) Potassium Level 4.8 mmol/L (3.5-5.1) Chloride Level 105 mmol/L (98-107) Carbon Dioxide Level 25 mmol/L (21-32) Anion Gap 10 (6-14) Blood Urea Nitrogen 31 mg/dL (8-26) H Creatinine 1.8 mg/dL (0.7-1.3) H Estimated GFR (Cockcroft-Gault) 38.1 Glucose Level 94 mg/dL (70-99) Calcium Level 8.8 mg/dL (8.5-10.1) Test 08/26/20 07:11 Glucose (Fingerstick) 97 mg/dL (70-99) Laboratory Tests 08/26/20 06:58 Laboratory Tests 08/26/20 06:58 ASSESSMENT/PLAN ASSESSMENT/PLAN 1. S/P L CEA: POD#1, doing well 2. Persistent AFIB: Known. rate controlled 3. Hx of recent CVA 4. CAD: past CABG clinically stable 5. HTN: controlled 6. HLP 7. DM2 8. Obesity Recommendations 1. Continue home BP regimen including coreg. 2. Eliquis for stroke prevention, OK per vascular 3. Continue secondary prevention measures 4. May DC per cardiac standpoint. Follow up with Dr. Avila at [facility] cardiology ABIGAIL MULTANI APRN Aug 26, 2020 09:41
[2020-08-26 10:23] VITALS: BP 136/63
[2020-08-26] MEDS ORDERED: APIX2.5T PO (10:46)
--- NOTE | 2020-08-26 10:49 | SNU/HH DC ---
DISCHARGE WITH HOME HEALTH DISCHARGE INFORMATION: Discharge Date: Aug 26, 2020 Condition on Discharge: Stable CODE STATUS: Code Status: Full HOME HEALTH: Face to Face: I certify this patient is under my care and that I, or a nurse practitioner or physician's food and beverage assistant working with me, had a face to face encounter that meets the physician face to face encounter requirements with this patient on 08/26/2020. Medical Complications: CHF RN For Eval/Treatment: Yes Physical Therapy For: Evalulation/Treatment Occupational Therapy For: Evaluation/Treatment Pt Meets Homebound Status: Fatigue w/ amb., Limited distance walking POST DISCHARGE ORDERS: Activity Instructions for Disc: No restrictions Weight Bearing Status after Di: No restrictions DIET AFTER DISCHARGE: Cardiac TREATMENT/EQUIPMENT ORDERS: Adaptive Equipment Issued: None Discharge Respiratory Equipmen: Oxygen CERTIFICATION STATEMENT: Certification Statement: Certification Statement: Based on the above finding, I certify that this patient is confined to the home and needs intermittent fci care, physical therapy and/or speech therapy, or continues to need occupational therapy.~ This patient is under my care, and I have initiated the establishment of the plan of care.~ This patient will be followed by myself or a community physician who will periodically review the plan of care. Home Meds Reported Medications Furosemide (FUROSEMIDE) 40 Mg Tablet, 40 MG PO DAILY for DIURETIC PRN, TAB 08/25/20 Aspirin (ASPIRIN EC) 81 Mg Tablet.dr, 1 TAB PO BID for heart health/stroke prevention, #30 TAB 3 Refills 08/19/20 Insulin Detemir (LEVEMIR) 100 Unit/1 Ml Vial, 10 UNIT SQ HS for diabetes, VIAL 08/19/20 Spironolactone (SPIRONOLACTONE) 25 Mg Tablet, 1 TAB PO DAILY for HTN, #90 TAB 1 Refill 08/19/20 Cholecalciferol (Vitamin D3) (VITAMIN D3) 2,400 Unit/1 Ml Liquid, 80616 UNIT MC WEEKLY for vitamin D deficiency, LIQUID 08/19/20 Amlodipine Besylate (AMLODIPINE BESYLATE) 5 Mg Tablet, 5 MG PO DAILY for HTN, TAB 08/19/20 Isosorbide Mononitrate (ISOSORBIDE MONONITRATE) 20 Mg Tablet, 60 MG PO BID for CAD, TAB 03/02/18 [place]-3 Fatty Acids/Fish Oil (FISH OIL 1,200 MG SOFTGEL) 1 Each Capsule, 1 EACH PO BID 04/24/14 Multivitamin (MULTI VITAMIN DAILY) 1 Each Tablet, 1 EACH PO 04/24/14 Atorvastatin Calcium (ATORVASTATIN CALCIUM) 40 Mg Tablet, 1 TAB PO DAILY, #30 TAB 5 Refills 04/24/14 Carvedilol (CARVEDILOL) 25 Mg Tablet, 1 TAB PO BID for HTN, #180 TAB 1 Refill hold if heart rate less than 60 or systolic BP less than 100 04/24/14 Levothyroxine Sodium (LEVOTHYROXINE SODIUM) 125 Mcg Tablet, 1 TAB PO DAILY, #30 TAB 5 Refills 04/24/14 Glimepiride (GLIMEPIRIDE) 4 Mg Tablet, 1 TAB PO DAILY, #30 TAB 5 Refills 04/24/14 ALTON REDDY MD Aug 26, 2020 10:49
--- NOTE | 2020-08-26 10:59 | PDOC3 ---
Discharge Summary Visit Information Date of Admission: Aug 25, 2020 Date of Discharge: Aug 26, 2020 Brief Hospital Course Allergies Allergies Coded Allergies Type Severity Reaction Last Updated Verified No Known Drug Allergies 08/19/20 No Vital Signs Vital Signs Date Time Temp Pulse Resp B/P (MAP) Pulse Ox O2 Delivery O2 Flow Rate FiO2 08/26/20 10:23 98.2 64 18 136/63 (87) 99 Nasal Cannula 3.0 98.2 Lab Results Laboratory Tests Test 08/25/20 12:39 08/25/20 18:01 08/25/20 23:02 08/26/20 06:58 Glucose (Fingerstick) 152 mg/dL (70-99) 181 mg/dL (70-99) 120 mg/dL (70-99) White Blood Count 9.6 x10^3/uL (4.0-11.0) Red Blood Count 3.55 x10^6/uL (4.30-5.70) Hemoglobin 9.9 g/dL (13.0-17.5) Hematocrit 30.0 % (39.0-53.0) Mean Corpuscular Volume 85 fL (79-100) Mean Corpuscular Hemoglobin 28 pg (25-35) Mean Corpuscular Hemoglobin Concent 33 g/dL (31-37) Red Cell Distribution Width 15.9 % (11.5-14.5) Platelet Count 189 x10^3/uL (140-400) Neutrophils (%) (Auto) 75 % (31-73) Lymphocytes (%) (Auto) 11 % (24-48) Monocytes (%) (Auto) 8 % (0-9) Eosinophils (%) (Auto) 6 % (0-3) Basophils (%) (Auto) 0 % (0-3) Neutrophils # (Auto) 7.2 x10^3/uL (1.8-7.7) Lymphocytes # (Auto) 1.1 x10^3/uL (1.0-4.8) Monocytes # (Auto) 0.8 x10^3/uL (0.0-1.1) Eosinophils # (Auto) 0.5 x10^3/uL (0.0-0.7) Basophils # (Auto) 0.0 x10^3/uL (0.0-0.2) Sodium Level 140 mmol/L (136-145) Potassium Level 4.8 mmol/L (3.5-5.1) Chloride Level 105 mmol/L (98-107) Carbon Dioxide Level 25 mmol/L (21-32) Anion Gap 10 (6-14) Blood Urea Nitrogen 31 mg/dL (8-26) Creatinine 1.8 mg/dL (0.7-1.3) Estimated GFR (Cockcroft-Gault) 38.1 Glucose Level 94 mg/dL (70-99) Calcium Level 8.8 mg/dL (8.5-10.1) Test 08/26/20 07:11 Glucose (Fingerstick) 97 mg/dL (70-99) Laboratory Tests Test 08/25/20 12:39 08/25/20 18:01 08/25/20 23:02 08/26/20 06:58 Glucose (Fingerstick) 152 mg/dL (70-99) 181 mg/dL (70-99) 120 mg/dL (70-99) White Blood Count 9.6 x10^3/uL (4.0-11.0) Red Blood Count 3.55 x10^6/uL (4.30-5.70) Hemoglobin 9.9 g/dL (13.0-17.5) Hematocrit 30.0 % (39.0-53.0) Mean Corpuscular Volume 85 fL (79-100) Mean Corpuscular Hemoglobin 28 pg (25-35) Mean Corpuscular Hemoglobin Concent 33 g/dL (31-37) Red Cell Distribution Width 15.9 % (11.5-14.5) Platelet Count 189 x10^3/uL (140-400) Neutrophils (%) (Auto) 75 % (31-73) Lymphocytes (%) (Auto) 11 % (24-48) Monocytes (%) (Auto) 8 % (0-9) Eosinophils (%) (Auto) 6 % (0-3) Basophils (%) (Auto) 0 % (0-3) Neutrophils # (Auto) 7.2 x10^3/uL (1.8-7.7) Lymphocytes # (Auto) 1.1 x10^3/uL (1.0-4.8) Monocytes # (Auto) 0.8 x10^3/uL (0.0-1.1) Eosinophils # (Auto) 0.5 x10^3/uL (0.0-0.7) Basophils # (Auto) 0.0 x10^3/uL (0.0-0.2) Sodium Level 140 mmol/L (136-145) Potassium Level 4.8 mmol/L (3.5-5.1) Chloride Level 105 mmol/L (98-107) Carbon Dioxide Level 25 mmol/L (21-32) Anion Gap 10 (6-14) Blood Urea Nitrogen 31 mg/dL (8-26) Creatinine 1.8 mg/dL (0.7-1.3) Estimated GFR (Cockcroft-Gault) 38.1 Glucose Level 94 mg/dL (70-99) Calcium Level 8.8 mg/dL (8.5-10.1) Test 08/26/20 07:11 Glucose (Fingerstick) 97 mg/dL (70-99) Brief Hospital Course Mr. Kuo is a 65 old male who presented with carotid stenosis. He had left carotid endarterectomy. Resumed his home medications, including home Eliquis. Patient was hemodynamically stable without any active bleeding postop day 1. He was able to ambulate unassisted without issue. He was stable for discharge home with home health. Discharge Information Condition at Discharge: Stable Follow Up: Weeks Disposition/Orders: D/C to Home w/ HH Scheduled Amlodipine Besylate (Amlodipine Besylate) 5 Mg Tablet, 5 MG PO DAILY for HTN, (Reported) Entered as Reported by: ZECHARIAH GARCIA on 08/19/201200 Last Action: Continued on 08/25/202148 by ALMA DELIA TABARES Apixaban (Eliquis) 2.5 Mg Tablet, 2.5 MG PO BID for Afib, #60 Ref 2 Prescribed by: ALTON REDDY MD on 08/26/20 1046 Aspirin (Aspirin Ec) 81 Mg Tablet., 1 TAB PO BID for heart health/stroke prevention, #30 Ref 3 (Reported) Entered as Reported by: ZECHARIAH GARCIA on 08/19/201206 Last Action: Continued on 08/25/202148 by ALMA DELIA TABARES Atorvastatin Calcium (Atorvastatin Calcium) 40 Mg Tablet, 1 TAB PO DAILY, #30 Ref 5 (Reported) Entered as Reported by: LIMA BERMUDEZ on 04/24/142026 Last Action: Continued on 08/25/202148 by ALMA DELIA TABARES Carvedilol (Carvedilol) 25 Mg Tablet, 1 TAB PO BID for HTN, #180 Ref 1 (Reported) hold if heart rate less than 60 or systolic BP less than 100 Entered as Reported by: LIMA BERMUDEZ on 04/24/142026 Last Action: Converted on 08/25/202148 by ALMA DELIA TABARES Cholecalciferol (Vitamin D3) (Vitamin D3) 2,400 Unit/1 Ml Liquid, 50,000 UNIT MC WEEKLY for vitamin D deficiency, (Reported) Entered as Reported by: ZECHARIAH GARCIA on 08/19/20 1204 Last Action: Converted on 08/25/202148 by ALMA DELIA TABARES Furosemide (Furosemide) 40 Mg Tablet, 40 MG PO DAILY for DIURETIC PRN, (Reported) Entered as Reported by: MARGARITO GEORGE on 08/25/20 1253 Last Action: Continued on 08/25/202148 by ALMA DELIA TABARES Glimepiride (Glimepiride) 4 Mg Tablet, 1 TAB PO DAILY, #30 Ref 5 (Reported) Entered as Reported by: LIMA BERMUDEZ on 04/24/142026 Last Action: Converted on 08/25/202148 by ALMA DELIA TABARES Insulin Detemir (Levemir) 100 Unit/1 Ml Vial, 10 UNIT SQ HS for diabetes, (Reported) Entered as Reported by: ZECHARIAH GARCIA on 08/19/20 1205 Last Action: Converted on 08/25/202148 by ALMA DELIA TABARES Isosorbide Mononitrate (Isosorbide Mononitrate) 20 Mg Tablet, 60 MG PO BID for CAD, (Reported) Entered as Reported by: Reji Holder on 03/02/182047 Last Action: Continued on 08/25/202148 by ALMA DELIA TABARES Levothyroxine Sodium (Levothyroxine Sodium) 125 Mcg Tablet, 1 TAB PO DAILY, #30 Ref 5 (Reported) Entered as Reported by: LIMA BERMUDEZ on 04/24/142026 Last Action: Continued on 08/25/202148 by ALMA DELIA TABARES [place]-3 Fatty Acids/Fish Oil (Fish Oil 1,200 Mg Softgel) 1 Each Capsule, 1 EACH PO BID, (Reported) Entered as Reported by: LIMA BERMUDEZ on 04/24/142026 Last Action: Converted on 08/25/202148 by ALMA DELIA TABARES Spironolactone (Spironolactone) 25 Mg Tablet, 1 TAB PO DAILY for HTN, #90 Ref 1 (Reported) Entered as Reported by: ZECHARIAH GARCIA on 08/19/20 120 Last Action: Continued on 08/25/202148 by ALMA DELIA TABARES Miscellaneous Medications Multivitamin (Multi Vitamin Daily) 1 Each Tablet, 1 EACH PO, (Reported) Entered as Reported by: LIMA BERMUDEZ on 04/24/142026 Last Action: Reviewed on 08/19/20 1204 by ZECHARIAH GARCIA Justicifation of Admission Dx: Justifications for Admission: Justification of Admission Dx: N/A ALTON REDDY MD Aug 26, 2020 10:59
--- NOTE | 2020-08-26 12:26 | NUR ---
SS following up with discharge planning. SS reviewed pt chart and discussed with pt RN. Pt is from home with spouse and is currently on room air. Discharge orders on the chart for home with home healthcare. SS met with pt and discussed home healthcare. Pt reported that he was current on services with [facility], ; fax [phone], and would like to resume services. SS phoned and faxed discharge orders and referral to [facility]. Pt's RN notified.
[2020-08-26 14:25] VITALS: BP 103/59
--- NOTE | 2020-08-26 16:09 | NUR ---
Discharge Note: YVROSE CEJA Discharge instructions and discharge home medications reviewed with Spouse and a copy given. All questions have been answered and understanding verbalized.
[2020-08-27 00:11] LABS: HEMOGLOBIN A1C 6.8 % (4.8-5.6)
[2020-09-01] MEDS ORDERED: ERGOCALCIFEROL (VITAMIN D2) 50,000 UNIT CAPSULE. PO SCH (09:00)
== END 2020-08-26 15:32 | disposition home health service (06) | DRG 38 ==
LOC: OPSVCIP 11:30 → 2 NORTH 18:25
PROVIDERS: ADMIT Family Medicine; ATTEND Family Medicine
PROC: 03CJ0ZZ Extirpation of Matter from Left Common Carotid Artery, Open Approach (ICD-10-PCS; 2020-08-25)
PROC: 03CN0ZZ Extirpation of Matter from Left External Carotid Artery, Open Approach (ICD-10-PCS; 2020-08-25)
PROC: 03CL0ZZ Extirpation of Matter from Left Internal Carotid Artery, Open Approach (ICD-10-PCS; principal; 2020-08-25 13:00)
DX: I65.22 Occlusion and stenosis of left carotid artery (principal); I13.0 Hypertensive heart and chronic kidney disease with heart failure and stage 1 through stage 4 chronic kidney disease, or unspecified chronic kidney disease; I48.19 Other persistent atrial fibrillation; I50.30 Unspecified diastolic (congestive) heart failure; E03.9 Hypothyroidism, unspecified; E11.22 Type 2 diabetes mellitus with diabetic chronic kidney disease; E11.40 Type 2 diabetes mellitus with diabetic neuropathy, unspecified; E11.51 Type 2 diabetes mellitus with diabetic peripheral angiopathy without gangrene; E66.9 Obesity, unspecified; E78.5 Hyperlipidemia, unspecified; I25.10 Atherosclerotic heart disease of native coronary artery without angina pectoris; M54.5 Low back pain; N18.30 Chronic kidney disease, stage 3 unspecified; Z82.49 Family history of ischemic heart disease and other diseases of the circulatory system; Z86.73 Personal history of transient ischemic attack (TIA), and cerebral infarction without residual deficits; Z68.30 Body mass index [BMI] 30.0-30.9, adult; Z95.1 Presence of aortocoronary bypass graft; Z95.5 Presence of coronary angioplasty implant and graft; I25.2 Old myocardial infarction; Z87.891 Personal history of nicotine dependence
CPT/HCPCS: 36415; 80048; 82962; 83036; 85025; J0360; J0690; J1644; J1815; J2250; J2704; J2720; J2795; J3010; J3490; J7040; J7120; G0378